=== PATIENT | female | born 1955 | race Caucasian/White ===

== ENCOUNTER 2017-06-25 18:15 | Inpatient (IN) ==
[2017-06-25] MEDS ORDERED: Ipratropium/Albuterol Neb 3 ML IH ONE (19:12)
--- NOTE | 2017-06-25 19:36 | Emergency Department Note ---
Disposition Clinical Impression: Shortness of breath, Pleural effusion, malignant, Lung cancer Disposition: Admitted As Inpatient Condition: Serious [facility] Provider[facility] - Forms: ED Satisfaction Letter Time of Disposition: 21:19 SOB HPI - General Chief Complaint: ED Shortness of Breath/Dyspnea Stated Complaint: YELENA Time Seen by Provider: 06/25/17 18:33 Source: patient Mode of arrival: ambulatory Limitations: physical limitation Nursing Notes Reviewed: Yes Vital Signs Reviewed: Yes - History of Present Illness 61-year-old female presents menstrual for shortness of breath. Patient is currently being worked up for possible lung cancer as she has had an abnormal PET scan and abnormal CT scan of the chest back in April. She does had a recent PET scan done that was showed active neoplasia. She states she is getting more short of breath. She states she feels short of breath at rest but definitely worse with up walking around and movement. She denies any chest pain. She states her legs are fine. She denies any sputum production but does admit to increasing cough as well. No documented fevers. No other complaints at this time. She scheduled to see oncology this upcoming week. - Related Data Allergies Allergy/AdvReac Type Severity Reaction Status Date / Time No Known Allergies Allergy Verified 01/25/17 08:22 All systems ED: reviewed and negative except as stated. Constitutional: Reports: as per HPI. Denies: fever, chills Eyes: Reports: as per HPI ENT ED: Reports: as per HPI Cardiovascular: Reports: as per HPI. Denies: chest pain, palpitations Respiratory: Reports: cough, dyspnea. 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 Absent: accessory muscle use - Cardiovascular Cardiovascular exam: Present: normal rhythm, tachycardia - Abdominal Exam Abdominal exam: Present: soft, Non-Tender, normal bowel sounds - Extremities Exam Extremities exam: Present: normal inspection - Back Exam Back exam: Present: normal inspection - Neurological Exam Neurological exam: Present: alert, oriented X3 - Psychiatric Psychiatric exam: Present: normal affect, normal mood - Skin Skin exam: Present: warm, dry, intact Course Vital Signs Temperature 97.9 F 06/25/17 18:23 Pulse Rate 118 06/25/17 18:23 Respiratory Rate 20 06/25/17 18:23 Blood Pressure 127/107 06/25/17 18:23 O2 Sat by Pulse Oximetry 96 06/25/17 18:23 Temperature 97.9 F 06/25/17 18:23 Pulse Rate 119 06/25/17 20:30 Respiratory Rate 24 06/25/17 20:30 Blood Pressure 118/95 06/25/17 20:30 O2 Sat by Pulse Oximetry 91 06/25/17 20:30 Oxygen Delivery Oxygen Delivery Nasal Cannula Shortness of Breath/Dyspnea - [facility] Narrative Medical decision making narrative: Patient's lung cancer seems to have drastically worsened to the point that she has got bilateral effusions now it is likely malignant. I have ordered some IV Lasix to see if this will help at all. She was started on IV antibiotics as well. Patient will need to be admitted to a stepdown bed. Await the official report from radiology. - Medical Records Medical records reviewed: Yes I reviewed the patient's medical records. - Lab Data Lab results reviewed: Yes I reviewed the patient's lab results. Result diagrams: 06/25/17 19:38 06/25/17 19:38 Lab Results 06/25/17 06/25/17 06/25/17 Range/Units 19:38 19:38 19:38 WBC 12.1 H (4.3-11.1) K/mcL RBC 4.91 (3.82-4.97) M/mcL Hgb 15.2 (11.5-15.4) g/dL Hct 45.7 H (35.3-44.9) % MCV 93.1 (83.0-100.0) fL MCH 31.0 (28.0-33.3) pg MCHC 33.3 (31.6-35.5) g/dL RDW 15.0 H (11.5-14.5) % Plt Count 319 (140-400) K/mcL MPV 10.3 (9.4-12.4) fL Immature Gran % 0.7 (0-4) % Seg Neutrophils % 77.6 % Lymphocytes % 12.2 % Monocytes % 8.2 % Eosinophils % 0.8 % Basophils % 0.5 % Neutrophils # 9.4 H (1.6-8.9) K/mcL Lymphocytes # 1.5 (0.6-4.6) K/mcL Monocytes # 1.0 (0.0-1.3) K/mcL Eosinophils # 0.1 (0.0-0.6) K/mcL Basophils # 0.1 (0.0-0.2) K/mcL Sodium 135 L (136-145) mEq/L Potassium 3.3 L (3.5-5.1) mEq/L Chloride 103 (98-107) mEq/L Carbon Dioxide 24 (23-29) mEq/L BUN 11 (8-23) mg/dL Creatinine 0.66 (0.60-1.20) mg/dL Est GFR ( Amer) > 60 (> 60) Est GFR (Non-Af Amer) > 60 (> 60) BUN/Creatinine Ratio 17 (6-26) Glucose 126 H (70-105) mg/dL Calculated Osmolality 281 (280-300) Calcium 9.0 (8.6-10.3) mg/dL B-Natriuretic Peptide 43 (Less than 100) pg/mL - Radiology Data Radiology results reviewed: Yes I reviewed the patient's radiology results. - EKG Data EKG attestation: Yes I reviewed and interpreted this EKG. EKG results narrative: EKG shows a rate of 119 consistent with sinus tachycardia. Normal axis. AR interval 131. QRS 69. QTC 394.
[2017-06-25] MEDS ORDERED: methylPREDNISolone 125 MG/2 ML VIAL IVP ONE (20:08)
[2017-06-25] MEDS ORDERED: Piperacillin/Tazobactam 3.375 GM in 0.9 % Sodium Chloride Mini Bag 100 ML IVPB ONE (20:08)
[2017-06-25 20:27] LABS: Basophils # 0.1 K/mcL (0.0-0.2); Basophils % 0.5 %; Eosinophils # 0.1 K/mcL (0.0-0.6); Eosinophils % 0.8 %; Hematocrit 45.7 % (35.3-44.9); Hemoglobin 15.2 g/dL (11.5-15.4); Immature Granulocytes % 0.7 % (0-4); Lymphocytes # 1.5 K/mcL (0.6-4.6); Lymphocytes % 12.2 %; Mean Corpuscular HGB Conc 33.3 g/dL (31.6-35.5); Mean Corpuscular Volume 93.1 fL (83.0-100.0); Mean Platelet Volume 10.3 fL (9.4-12.4); Monocytes % 8.2 %; Neutrophils # 9.4 K/mcL (1.6-8.9); Platelet Count 319 K/mcL (140-400); Red Blood Count 4.91 M/mcL (3.82-4.97); Segmented Neutrophils % 77.6 %
[2017-06-25] MEDS ORDERED: *HR* FentaNYL (PF) 100 MCG/2 ML VIAL IVP ONE (20:30)
[2017-06-25 20:35] LABS: BUN/Creatinine Ratio 17 (6-26); Blood Urea Nitrogen 11 mg/dL (8-23); Carbon Dioxide 24 mEq/L (23-29); Chloride 103 mEq/L (98-107); Glucose 126 mg/dL (70-105); Osmolality,Calculated 281 (280-300); Potassium 3.3 mEq/L (3.5-5.1); Sodium 135 mEq/L (136-145); eGFR For African Americans > 60 (> 60); eGFR For Non-African Americans > 60 (> 60)
[2017-06-25] MEDS ORDERED: Furosemide 40 MG/4 ML VIAL IVP ONE (21:14)
[2017-06-25 21:28] LABS: Troponin I < 0.03 ng/mL (< 0.04)
[2017-06-25] MEDS ORDERED: Naloxone 0.4 MG/ML INJ IVP PRN (21:40)
[2017-06-25] MEDS ORDERED: Acetaminophen 325 MG TABLET PO PRN (21:40)
[2017-06-25] MEDS ORDERED: Ipratropium/Albuterol Neb 3 ML IH PRN (21:45)
--- NOTE | 2017-06-25 21:53 | Internal Med History&Physical ---
Date of Encounter: 06/25/17 Time of Encounter: 21:00 Assessment and Plan (1) DVT prophylaxis Current visit: Yes Status: Acute Heparin subcutaneously (2) Breast cancer Current visit: Yes Status: Acute S/P mastectomy in 2010. We will consult oncology Qualifiers: Breast location: unspecified site of breast Estrogen receptor status: unspecified Patient sex: female Laterality: right Qualified Code(s): C50.911 - Malignant neoplasm of unspecified site of right female breast (3) Lung cancer Current visit: Yes Status: Acute CT and PET scan suspected lung cancer. Patient is scheduled to see oncology. We will continue closely monitor patient and give supportive treatment. Consult oncology. Qualifiers: Laterality: right Lung location: lower lobe of lung Qualified Code(s): C34.31 - Malignant neoplasm of lower lobe, right bronchus or lung (4) Pleural effusion, malignant Current visit: Yes Status: Acute Most likely malignant pleural effusion. Patient has negative BNP, negative for leg swelling, CHF is less likely. - We will give low-rate IV fluid as patient had contrasted CT today (5) Shortness of breath Current visit: Yes Status: Acute Most likely due to lung cancer and large amount of pleural effusion. Progressive course over the last 6 months. Patient has lost 50 pounds in last 6 months. CTA shows no PE. - As patient has leukocytosis and tachycardia, empirical antibiotics is started from ER, will continue. - Patient has respiratory distress, will place her on BiPAP during tonight. - Continue closely monitor patient Internal Medicine - H&P: HPI Chief complaint: SOB Admitted From: Home Plans for Post Hospital Care: Home History of present illness: Ms. Gilmore is a 61 year old female with history of breast cancer S/P mastectomy, suspect lung malignancy by PET scan recently, presented to ER for progressive shortness of breath and cough. Patient said she has shortness of breath since 6 months ago, with nonproductive cough, progressively getting worse, with exertional intolerance. Patient denies fever, chest pain, nausea. Patient denies leg swelling. Patient cannot lay flat for sleeping at home. Patient has a recent PET scan suspect lung neoplasm and is scheduled to see oncology next week. In emergency room, CAT scan shows large amount of bilateral pleural effusion and pulmonary nodules. Patient was admitted for further management. Past Med Surg Social Fam HX - Past Medical History Medical history: arthritis, cancer Psychiatric history: no psych history - Past Surgical History Surgical History: breast surgery, cancer surgery, cholecystectomy, other - Social History Smoking Status: Former smoker Smokeless Tobacco Status: No Alcohol use: none Drug use: none - Family History Mother History Unknown: Yes Internal Medicine - H&P: Meds 3 Allergy/AdvReac Type Severity Reaction Status Date / Time No Known Allergies Allergy Verified 01/25/17 08:22 All Systems PM: A 10-system review of systems was performed and is negative for pertinent findings except as documented above in the HPI. - Constitutional Vitals: Temp Pulse Resp BP Pulse Ox 97.9 F 119 24 118/95 91 06/25/17 18:23 06/25/17 20:30 06/25/17 20:30 06/25/17 20:30 06/25/17 20:30 General appearance: Present: mild distress, A&O X 3, answers questions appropriately - Head Head exam: Present: atraumatic, normocephalic - Eye Eye exam: Present: PERRL, conjuntiva pink, sclera anicteric Pupils: Present: PERRL - Neck Neck exam general surgery: Present: supple, trachea midline. Absent: lymphadenopathy - Respiratory Respiratory exam: Present: CTAB, rhonchi (Defused rhonchi bilaterally), wheezes (Scattered wheezes bilaterally). Absent: accessory muscle use, rales - Cardiovascular Cardiovascular exam: Present: RRR, +S1, +S2, tachycardia. Absent: diastolic murmur, gallop, rubs, systolic murmur - GI/Abdominal GI/Abdominal exam: Present: normal bowel sounds, soft, no peritoneal signs. Absent: distended, tenderness - Extremities Exam Extremities exam: Present: warm, radial pulses palpable and symmetrical. Absent : calf tenderness, cyanotic, pedal edema - Neurological Exam Neurological exam: Present: CN II-XII intact, oriented X3, no focal deficits. Absent: pronater drift, facial droop, speech deficit - Skin Skin exam: Present: dry, intact Internal Med - H&P Results - Labs CBC & Chem 7: 06/25/17 19:38 06/25/17 19:38 - EKG Data -: EKG Interpreted by Myself EKG shows normal: sinus rhythm Rate: tachycardia
[2017-06-25] MEDS ORDERED: 0.9 % Sodium Chloride 1,000 ML IVC SCH (22:00)
[2017-06-25] MEDS ORDERED: *HR* LORazepam 1 MG TABLET PO PRN (22:21)
[2017-06-25] MEDS: Ipratropium/Albuterol Neb 3 ML IH SCH (22:30)
[2017-06-25] MEDS: *HR* HYDROcodone/Acet 5/325 mg TABLET PO PRN (22:47)
[2017-06-25] MEDS ORDERED: Piperacillin/Tazobactam 3.375 GM in 0.9 % Sodium Chloride Mini Bag 100 ML IVPB SCH (23:00)
[2017-06-26] MEDS ORDERED: Piperacillin/Tazobactam 3.375 GM in 0.9 % Sodium Chloride Mini Bag 100 ML IVPB SCH
[2017-06-26] MEDS: Ipratropium/Albuterol Neb 3 ML IH SCH ×4 (03:20→21:51)
[2017-06-26 05:48] LABS: Basophils % 0.2 %; Hematocrit 46.1 % (35.3-44.9); Hemoglobin 15.5 g/dL (11.5-15.4); Immature Granulocytes % 1.3 % (0-4); Immature Platelets 6.1 % (1.1-6.1); Lymphocytes # 0.4 K/mcL (0.6-4.6); Lymphocytes % 4.6 %; Mean Corpuscular HGB Conc 33.6 g/dL (31.6-35.5); Mean Corpuscular Hemoglobin 31.6 pg (28.0-33.3); Mean Corpuscular Volume 93.9 fL (83.0-100.0); Mean Platelet Volume 10.5 fL (9.4-12.4); Monocytes # 0.1 K/mcL (0.0-1.3); Monocytes % 0.8 %; Neutrophils # 8.4 K/mcL (1.6-8.9); Nucleated Red Blood Cells 0.2 /100 WBC (0); Platelet Count 335 K/mcL (140-400); Red Blood Count 4.91 M/mcL (3.82-4.97); Segmented Neutrophils % 93.1 %
[2017-06-26 05:49] LABS: INR 1.1; Prothrombin Time 11.6 Seconds (9.4-12.1)
[2017-06-26 06:04] LABS: BUN/Creatinine Ratio 14 (6-26); Blood Urea Nitrogen 12 mg/dL (8-23); Calcium 9.1 mg/dL (8.6-10.3); Carbon Dioxide 24 mEq/L (23-29); Chloride 100 mEq/L (98-107); Glucose 175 mg/dL (70-105); Magnesium 1.8 mg/dL (1.6-2.6); Osmolality,Calculated 288 (280-300); Potassium 3.7 mEq/L (3.5-5.1); Sodium 137 mEq/L (136-145); eGFR For African Americans > 60 (> 60); eGFR For Non-African Americans > 60 (> 60)
[2017-06-26] MEDS: *HR* Heparin 5,000 UNIT/ML VIAL SQ SCH ×2 (06:36→18:25)
[2017-06-26] MEDS: Piperacillin/Tazobactam 3.375 GM in 0.9 % Sodium Chloride Mini Bag 100 ML IVPB SCH ×3 (06:37→22:20)
--- NOTE | 2017-06-26 22:04 | Internal Med Progress Note ---
Date of Encounter: 06/26/17 Time of Encounter: 10:04 - Assessment and plan (1) Shortness of breath Current Visit: Yes Status: Acute Assessment and plan: Due to pleural effusion and fluid overload. Possibly heart failure component. - does not currently meet clinical diagnosis. BNP is within normal limits. CTA negative for PE Today is tachycardic with leukocytosis, afebrile. Concern for pneumonia or sepsis - on Vancomycin and Zosyn She feels relief from Duo Nebs but she is tachycardic so I will switch to Xopenex. No wheezing appreciated on my exam. - Obtain echocardiogram - Continue diuresis - Continue Vancomycin and Zosyn. - Consult IR for thoracentesis (2) Breast cancer Current Visit: Yes Status: Acute Assessment and plan: Status-post mastectomy - with new found lung cancer Consult Oncology Qualifiers: Breast location: unspecified site of breast Estrogen receptor status: unspecified Patient sex: female Laterality: right Qualified Code(s): C50.911 - Malignant neoplasm of unspecified site of right female breast (3) DVT prophylaxis Current Visit: Yes Status: Acute (4) Lung cancer Current Visit: Yes Status: Acute Qualifiers: Laterality: right Lung location: lower lobe of lung Qualified Code(s): C34.31 - Malignant neoplasm of lower lobe, right bronchus or lung (5) Pleural effusion, malignant Current Visit: Yes Status: Acute Assessment and plan: See plan above. - Subjective Interval history: Patient SOB somewhat improved but nursing notes she was still requiring O2 - Constitutional Vitals: Temp Pulse Resp BP Pulse Ox 98.3 F 114 16 123/90 97 06/26/17 19:00 06/26/17 19:00 06/26/17 21:51 06/26/17 21:51 06/26/17 21:51 General appearance: Present: mild distress, A&O X 3, answers questions appropriately - Head Head exam: Present: atraumatic, normocephalic - Eye Eye exam: Present: PERRL, conjuntiva pink, sclera anicteric Pupils: Present: PERRL - Neck Neck exam general surgery: Present: supple, trachea midline. Absent: lymphadenopathy - Respiratory Respiratory exam: Present: decreased breath sounds, rales, rhonchi. Absent: accessory muscle use, wheezes - Cardiovascular Cardiovascular exam: Present: RRR, +S1, +S2. Absent: diastolic murmur, gallop, rubs, systolic murmur - GI/Abdominal GI/Abdominal exam: Present: normal bowel sounds, soft, no peritoneal signs. Absent: distended, tenderness - Extremities Exam Extremities exam: Present: warm, radial pulses palpable and symmetrical. Absent : calf tenderness, cyanotic, pedal edema - Neurological Exam Neurological exam: Present: CN II-XII intact, oriented X3, no focal deficits. Absent: pronater drift, facial droop, speech deficit - Skin Skin exam: Present: dry, intact Internal Medicine: Result - Labs CBC & Chem 7: 06/28/17 03:20 06/28/17 03:20 Labs: Short CBC 06/26/17 Range/Units 05:00 WBC 9.0 (4.3-11.1) K/mcL Hgb 15.5 H (11.5-15.4) g/dL Hct 46.1 H (35.3-44.9) % Plt Count 335 (140-400) K/mcL Neutrophils # 8.4 (1.6-8.9) K/mcL BMP 06/26/17 05:00 Sodium 137 Potassium 3.7 Chloride 100 Carbon Dioxide 24 BUN 12 Creatinine 0.85 Glucose 175 H Calcium 9.1 - ABG Interpretation ABG results: PT/INR, D-dimer PT 11.6 Seconds (9.4-12.1) 06/26/17 05:00 Consult Discharge Plan - Plan [facility]errals: [facility] [Primary Care Provider[facility] -
[2017-06-26] MEDS: Furosemide 40 MG/4 ML VIAL IVP SCH (22:20)
[2017-06-26] MEDS: *HR* HYDROcodone/Acet 5/325 mg TABLET PO PRN (22:21)
[2017-06-27] MEDS: Ipratropium/Albuterol Neb 3 ML IH SCH (03:28)
[2017-06-27] MEDS: *HR* Heparin 5,000 UNIT/ML VIAL SQ SCH ×2 (05:25→16:41)
[2017-06-27] MEDS: Piperacillin/Tazobactam 3.375 GM in 0.9 % Sodium Chloride Mini Bag 100 ML IVPB SCH (05:26)
[2017-06-27 07:44] LABS: BUN/Creatinine Ratio 11 (6-26); Blood Urea Nitrogen 11 mg/dL (8-23); Carbon Dioxide 23 mEq/L (23-29); Chloride 103 mEq/L (98-107); Glucose 121 mg/dL (70-105); Osmolality,Calculated 291 (280-300); Potassium 3.6 mEq/L (3.5-5.1); Sodium 140 mEq/L (136-145); eGFR For African Americans > 60 (> 60); eGFR For Non-African Americans 58 (> 60)
[2017-06-27] MEDS ORDERED: Aminoglycoside Consult 1 EACH MC ONE (08:11)
[2017-06-27 08:41] LABS: Basophils % 0.2 %; Hematocrit 46.4 % (35.3-44.9); Hemoglobin 15.5 g/dL (11.5-15.4); Immature Granulocytes % 0.4 % (0-4); Lymphocytes # 1.4 K/mcL (0.6-4.6); Lymphocytes % 6.6 %; Mean Corpuscular HGB Conc 33.4 g/dL (31.6-35.5); Mean Corpuscular Hemoglobin 31.2 pg (28.0-33.3); Mean Corpuscular Volume 93.4 fL (83.0-100.0); Mean Platelet Volume 11.1 fL (9.4-12.4); Monocytes % 7.4 %; Neutrophils # 17.8 K/mcL (1.6-8.9); Platelet Count 304 K/mcL (140-400); Red Blood Count 4.97 M/mcL (3.82-4.97); Red Cell Distribution Width 15.9 % (11.5-14.5); Segmented Neutrophils % 85.4 %
[2017-06-27 08:46] LABS: Monocytes # 1.5 K/mcL (0.0-1.3)
--- NOTE | 2017-06-27 08:48 | Internal Med Progress Note ---
Date of Encounter: 06/27/17 Time of Encounter: 08:46 - Assessment and plan (1) Shortness of breath Current Visit: Yes Status: Acute Assessment and plan: Due to pleural effusion and fluid overload. Possibly heart failure component. - does not currently meet clinical diagnosis. BNP is within normal limits. CTA negative for PE Today is tachycardic with leukocytosis, afebrile. Concern for pneumonia or sepsis - on Vancomycin and Zosyn She feels relief from Duo Nebs but she is tachycardic so I will switch to Xopenex. No wheezing appreciated on my exam. - Obtain echocardiogram - Continue diuresis - Continue Vancomycin and Zosyn. - Consult IR for thoracentesis (2) Pleural effusion, malignant Current Visit: Yes Status: Acute Assessment and plan: See plan above. (3) Breast cancer Current Visit: Yes Status: Acute Assessment and plan: Status-post mastectomy - with new found lung cancer Consult Oncology Qualifiers: Breast location: unspecified site of breast Estrogen receptor status: unspecified Patient sex: female Laterality: right Qualified Code(s): C50.911 - Malignant neoplasm of unspecified site of right female breast (4) Lung cancer Current Visit: Yes Status: Acute Qualifiers: Laterality: right Lung location: lower lobe of lung Qualified Code(s): C34.31 - Malignant neoplasm of lower lobe, right bronchus or lung (5) DVT prophylaxis Current Visit: Yes Status: Acute - Subjective Interval history: Patient had difficulty sleeping overnight because of dyspnea. She denies chest pain, fevers/chills, n/v. - Constitutional Vitals: Temp Pulse Resp BP Pulse Ox 97.7 F 117 16 124/95 96 06/27/17 06:30 06/27/17 06:30 06/27/17 06:30 06/27/17 06:30 06/27/17 06:30 General appearance: Present: mild distress, A&O X 3, answers questions appropriately - Head Head exam: Present: atraumatic, normocephalic - Eye Eye exam: Present: PERRL, conjuntiva pink, sclera anicteric Pupils: Present: PERRL - Neck Neck exam general surgery: Present: supple, trachea midline. Absent: lymphadenopathy - Respiratory Respiratory exam: Present: CTAB. Absent: accessory muscle use, rales, rhonchi, wheezes Additional comments: No longer with rales - Cardiovascular Cardiovascular exam: Present: RRR, +S1, +S2. Absent: diastolic murmur, gallop, rubs, systolic murmur - GI/Abdominal GI/Abdominal exam: Present: normal bowel sounds, soft, no peritoneal signs. Absent: distended, tenderness - Extremities Exam Extremities exam: Present: warm, radial pulses palpable and symmetrical. Absent : calf tenderness, cyanotic, pedal edema - Neurological Exam Neurological exam: Present: CN II-XII intact, oriented X3, no focal deficits. Absent: pronater drift, facial droop, speech deficit - Skin Skin exam: Present: dry, intact Internal Medicine: Result - Labs CBC & Chem 7: 06/27/17 05:53 06/27/17 05:53 Labs: BMP 06/27/17 05:53 Sodium 140 Potassium 3.6 Chloride 103 Carbon Dioxide 23 BUN 11 Creatinine 0.97 Glucose 121 H Calcium 9.0 - ABG Interpretation ABG results: PT/INR, D-dimer PT 11.6 Seconds (9.4-12.1) 06/26/17 05:00 Consult Discharge Plan - Plan [facility]errals: [facility] [Primary Care Provider] -
[2017-06-27] MEDS: Furosemide 40 MG/4 ML VIAL IVP SCH ×2 (09:20→21:05)
[2017-06-27] MEDS: Levalbuterol Neb 1.25 MG/3 ML IH SCH ×3 (10:53→21:48)
[2017-06-27] MEDS: *HR* HYDROcodone/Acet 5/325 mg TABLET PO PRN ×3 (11:00→21:20)
--- NOTE | 2017-06-27 11:08 | IR Procedure Note ---
Date of procedure: 06/27/17 Consent Obtained: Verbal consent, Written consent Timeout: Correct patient and procedure verified, Correct site verified, Time out performed, Skin prep completed Local anesthetic: Lidocaine 1% Indications: effusion Procedure Performed: right thoracentesis Was there an home based assistant present: Yes Brake Repairer: Gagan Luz Site/Technique: right Results/Findings: 1.5 L serous fluid aspirated Estimated blood loss (cc): 1 Complications: None; Tolerated procedure well Post Procedure Treatment Plan: CXR Specimen: pleural fluid
[2017-06-27 11:11] LABS: Albumin 3.6 g/dL (3.5-5.7); Albumin/Globulin Ratio 1.5 (1.1-2.2); Globulin 2.4 g/dL (2.4-3.5); Lactate Dehydrogenase 308 Units/L (140-271)
[2017-06-27] MEDS ORDERED: *HR* LORazepam 1 MG TABLET PO PRN (15:04)
--- NOTE | 2017-06-27 17:35 | Oncology Inp Consult Note ---
<Selena Kunz - Last Filed: 06/28/17 09:11> Date of Encounter: 06/27/17 Time of Encounter: 17:34 Assessment and Plan (1) Breast cancer Status: Acute Assessment and plan: Oncologic history as detailed in HPI. Recent radiographic findings concerning for malignant process, either recurrent breast cancer or new primary. Dr. Lugo discussed radiographic findings concerning for malignancy with patient and patients family at today's visit. Awaiting cytology from pleural fluid, if negative or insufficient malignant cells obtained, will likely pursue other biopsy. May discontinue antibiotic therapy, CT findings and leukocytosis suggestive of malignancy and not infectious process. She is planned for left thoracentesis tomorrow, will also plan to send for cytology. She was planned for consult tomorrow as outpatient with Dr. Oscar following her PET/CT scan results, will arrange for close follow up with Dr. Oscar for further workup and management. Now requiring 2L O2, obtain SW consult for home O2 needs if she qualifies. Please refer to Dr. Lugo's attestation below for further details. Qualifiers: Breast location: unspecified site of breast Estrogen receptor status: unspecified Patient sex: female Laterality: right Qualified Code(s): C50.911 - Malignant neoplasm of unspecified site of right female breast - Data of Consult Patient: new to practice Consult date: 06/27/17 Requesting Physician: Gabriel Beckman MD Primary Care Provider: PCP NM - Consult Narrative Reason for consult: history of right breast cancer, imaging findings concerning for recurrence History of present illness: Ms. Gilmore is a 61 year old female with oncologic history significant for breast cancer diagnosed in 2010, treated with right mastectomy, chemo/rad and endocrine therapy with Arimidex for 5 years. She was last treated by Dr. Varela. Patient states she has been experiencing persistent, dry cough for about one year now. [facility] the past year and receiving workup and treatment for COPD exacerbation, pnuemonia and pleural effusion management. She is up to date on mammogram with most recent mammo/breast MRI in October/November of 2016 which had shown no evidence of malignancy and mild anterior right lung postradiation fibrosis. She underwent Bronchoscopy in January 2017 for right middle lobe pneumonia which found a benign appearing lesion cause a narrowing of the right middle lobe, brushings/ BAL were benign. Following CT findings on 05/09/2017 concerning for new sclerotic lesions within the lower thoracic spine, she underwent PET/CT which revealed mild uptake associated with an unchanged 0.9 cm x 0.6 cm solid nodule in the right lower lobe, persistent interlobular septal thickening, mosaic attenuation, and peribronchovascular groundglass and consolidative opacities bilaterally with associated uptake along with sclerotic metastases in a few thoracic and lumbar vertebrae and possibly the bilateral 10th ribs and mildly hypermetabolic mediastinal and bilateral hilar lymph nodes, potentially reactive or metastatic. Following this she was referred to Dr. Oscar for further workup and management, however recently admitted for worsening SOB, cough and exertional intolerance. CTA revealed multifocal areas of peripheral ground-glass nodular opacification identified, as described on previous evaluations and bilateral, large pleural effusions, right greater than left. IR performed right thoracentesis with 1.5 L serous fluid aspirated, fluid sent for cytology. Ms. Dali Gilmore is a prior smoker, she quite smoking about 14 years ago. She has been experiencing new respiratory symptoms as described above which have been worsening over the past year. Over the past 6-12 months she has lost 50 pounds and has no appetite. Most recently she has been unable to ambulate in her home due to exertional dyspnea. Past Med Surg Social Fam HX - Past Medical History Medical history: arthritis, cancer Psychiatric history: no psych history - Past Surgical History Surgical History: breast surgery, cancer surgery, cholecystectomy, other - Social History Smoking Status: Former smoker Smokeless Tobacco Status: No Alcohol use: none Drug use: none - Family History Mother History Unknown: Yes Medications and Allergies BuPROPion XL (24 HR) [Wellbutrin XL] 150 mg PO DAILY 06/25/17 [History] DULoxetine [Cymbalta] 30 mg PO DAILY 06/25/17 [History] Pregabalin [Lyrica] 200 mg PO TID 06/25/17 [History] Budesonide/Formoterol 160/4.5 [Symbicort 160/4.5] 1 puff IH BID 06/26/17 [ History] Cholecalciferol (Vitamin D3) [Vitamin D3] 2,000 unit PO DAILY 06/26/17 [History] Losartan Potassium [Cozaar] 50 mg PO DAILY 06/26/17 [History] Tramadol HCl [Ultram] 50 mg PO QID PRN 06/26/17 [History] 3 Allergy/AdvReac Type Severity Reaction Status Date / Time No Known Allergies Allergy Verified 01/25/17 08:22 Constitutional: Present: as per HPI, anorexia, fatigue, weight loss. Absent: chills, fever(s) Eyes: Absent: change in vision Nose, mouth and throat: Absent: headache(s) Cardiovascular: Absent: chest pain, irregular heart rhythm, palpitations Respiratory: Present: as per HPI, cough, dyspnea. Absent: hemoptysis Gastrointestinal: Absent: abdominal pain, dysphagia, hematemesis, hematochezia, nausea, vomiting Genitourinary: Absent: dysuria, hematuria Musculoskeletal: Present: muscle weakness Integumentary: Absent: wounds Neurological: Absent: focal weakness, frequent falls, numbness, tingling Psychiatric: Present: change in appetite Hematologic/Lymphatic: Present: as per HPI Oncology - Exam - Constitutional Vitals: Temp Pulse Resp BP Pulse Ox 97.9 F 118 16 109/83 96 06/27/17 15:58 06/27/17 15:58 06/27/17 15:58 06/27/17 15:58 06/27/17 15:58 General appearance: cooperative, no acute distress, no febrile - Head Head exam: Present: atraumatic - Respiratory Respiratory exam: Present: decreased breath sounds, CTAB. Absent: respiratory distress - Cardiovascular Cardiovascular exam: Present: RRR, +S1, +S2 - GI/Abdominal GI/Abdominal exam: Present: normal bowel sounds, soft. Absent: tenderness - Extremities Exam Extremities exam: Present: normal inspection. Absent: calf tenderness - Neurological Exam Neurological exam: Present: alert, oriented X3, no focal deficits, strengths equal and symetr throughout - Psychiatric Psychiatric exam: Present: normal affect, normal mood - Skin Skin exam: Present: normal color, warm Additional comments: flushed appearance Oncology - Results Labs: Short CBC 06/27/17 Range/Units 05:53 WBC 20.8 H D (4.3-11.1) K/mcL Hgb 15.5 H (11.5-15.4) g/dL Hct 46.4 H (35.3-44.9) % Plt Count 304 (140-400) K/mcL Neutrophils # 17.8 H (1.6-8.9) K/mcL BMP 06/27/17 05:53 Sodium 140 Potassium 3.6 Chloride 103 Carbon Dioxide 23 BUN 11 Creatinine 0.97 Glucose 121 H Calcium 9.0 Liver Function 06/27/17 Range/Units 05:53 Albumin 3.6 (3.5-5.7) g/dL Consult Discharge Plan - Plan [facility]errals: [facility] [Primary Care Provider[facility] - <Hector Lugo - Last Filed: 06/29/17 08:21> Date of Encounter: 06/27/17 - Data of Consult Requesting Physician: Gabirel Beckman MD Primary Care Provider: PCP NM - Consult Narrative History of present illness: Ms. Gilmore is a 61 year old female Oncology - Exam - Constitutional Vitals: Temp Pulse Resp BP Pulse Ox 98.2 F 106 16 110/90 94 06/29/17 06:25 06/29/17 06:25 06/29/17 06:25 06/29/17 06:25 06/29/17 06:25 Oncology - Results Labs: Short CBC 06/29/17 Range/Units 02:42 WBC 12.2 H (4.3-11.1) K/mcL Hgb 14.5 (11.5-15.4) g/dL Hct 44.4 (35.3-44.9) % Plt Count 261 (140-400) K/mcL Neutrophils # 9.4 H (1.6-8.9) K/mcL [facility] 06/29/17 02:42 Sodium 135 L Potassium 3.4 L Chloride 97 L Carbon Dioxide 30 H BUN 15 Creatinine 0.84 Glucose 127 H Calcium 8.9 - Attending Attestation seen and examined patient and agree with assessment and plan. New pleural effusions and findings on chest CT suggest lymphangitic spread of a neoplasm. Agree with bilateral thoracenteses. Will await cytology. My primary suspicion is recurrent breast cancer. However, other neoplastic processes are possible also. If cytology from both taps ends up negative may need VATS.
[2017-06-28] MEDS: Levalbuterol Neb 1.25 MG/3 ML IH SCH ×4 (04:19→22:03)
[2017-06-28 04:26] LABS: BUN/Creatinine Ratio 13 (6-26); Blood Urea Nitrogen 11 mg/dL (8-23); Calcium 8.7 mg/dL (8.6-10.3); Carbon Dioxide 30 mEq/L (23-29); Chloride 99 mEq/L (98-107); Glucose 106 mg/dL (70-105); Osmolality,Calculated 286 (280-300); Potassium 2.9 mEq/L (3.5-5.1); Sodium 138 mEq/L (136-145); eGFR For African Americans > 60 (> 60); eGFR For Non-African Americans > 60 (> 60)
[2017-06-28 04:42] LABS: Basophils # 0.1 K/mcL (0.0-0.2); Basophils % 0.4 %; Eosinophils # 0.1 K/mcL (0.0-0.6); Eosinophils % 0.4 %; Hematocrit 44.6 % (35.3-44.9); Hemoglobin 14.5 g/dL (11.5-15.4); Immature Granulocytes % 0.4 % (0-4); Lymphocytes # 1.7 K/mcL (0.6-4.6); Lymphocytes % 12.3 %; Mean Corpuscular HGB Conc 32.5 g/dL (31.6-35.5); Mean Corpuscular Hemoglobin 30.8 pg (28.0-33.3); Mean Corpuscular Volume 94.7 fL (83.0-100.0); Mean Platelet Volume 10.7 fL (9.4-12.4); Monocytes # 1.2 K/mcL (0.0-1.3); Neutrophils # 10.6 K/mcL (1.6-8.9); Platelet Count 305 K/mcL (140-400); Red Blood Count 4.71 M/mcL (3.82-4.97); Red Cell Distribution Width 15.5 % (11.5-14.5); Segmented Neutrophils % 77.5 %
[2017-06-28] MEDS: *HR* Heparin 5,000 UNIT/ML VIAL SQ SCH ×2 (06:16→17:31)
[2017-06-28] MEDS ORDERED: Benzonatate 100 MG CAPSULE PO PRN (09:53)
[2017-06-28] MEDS: *HR* HYDROcodone/Acet 5/325 mg TABLET PO PRN ×3 (09:57→17:31)
[2017-06-28] MEDS: Furosemide 40 MG/4 ML VIAL IVP SCH (09:58)
[2017-06-28] MEDS ORDERED: Potassium Chloride Elixir 20 MEQ/15 ML UDC PO ONE (10:25)
--- NOTE | 2017-06-28 10:28 | Internal Med Progress Note ---
Date of Encounter: 06/28/17 Time of Encounter: 10:28 - Subjective Interval history: SOB improved S/p thoracentesis yesterday with ~1500 ml removed Cytology still pending WBC cound trending down Awaiting left-sided thoracentesis today Assessment and plan (1) Shortness of breath Due to pleural effusion and fluid overload. BNP is within normal limits and CHF not clinically suggested. CTA negative for PE Abx d/c's as PNA not likely Blood cx neg to date Continue diuresis IR consulted for left-sided Thoracentesis (2) Pleural effusion, malignant Cytology pending from thoracentesis (3) Breast cancer Current Visit: Yes Status: Acute Assessment and plan: Status-post mastectomy, RTX and chemo with recent breast MRI and mammo negative for recurrence Oncology consult appreciated (4) Lung cancer Depending on cytology results a bx may be needed Oncology following - - Constitutional Vitals: Temp Pulse Resp BP Pulse Ox 98.1 F 119 18 115/91 94 06/28/17 06:27 06/28/17 10:01 06/28/17 10:14 06/28/17 10:01 06/28/17 10:14 General appearance: Present: A&O X 3, pleasant, answers questions appropriately - Head Head exam: Present: atraumatic, normocephalic - Eye Eye exam: Present: EOMI, normal appearance, PERRL, conjuntiva pink, sclera anicteric Pupils: Present: PERRL - Neck Neck exam general surgery: Present: supple, trachea midline. Absent: lymphadenopathy - Respiratory Respiratory exam: Present: decreased breath sounds, CTAB. Absent: accessory muscle use, rales, rhonchi, wheezes - Cardiovascular Cardiovascular exam: Present: RRR, +S1, +S2. Absent: diastolic murmur, gallop, rubs, systolic murmur - GI/Abdominal GI/Abdominal exam: Present: normal bowel sounds, soft, no peritoneal signs. Absent: distended, guarding, tenderness - Extremities Exam Extremities exam: Present: warm, radial pulses palpable and symmetrical. Absent : calf tenderness, cyanotic, pedal edema - Neurological Exam Neurological exam: Present: CN II-XII intact, oriented X3, no focal deficits. Absent: pronater drift, facial droop, speech deficit - Psychiatric Psychiatric exam: Present: normal affect, normal mood - Skin Skin exam: Present: dry, intact Internal Medicine: Result - Labs CBC & Chem 7: 06/28/17 03:20 06/28/17 03:20 Labs: Short CBC 06/28/17 Range/Units 03:20 WBC 13.7 H (4.3-11.1) K/mcL Hgb 14.5 (11.5-15.4) g/dL Hct 44.6 (35.3-44.9) % Plt Count 305 (140-400) K/mcL Neutrophils # 10.6 H (1.6-8.9) K/mcL BMP 06/28/17 03:20 Sodium 138 Potassium 2.9 L Chloride 99 Carbon Dioxide 30 H BUN 11 Creatinine 0.86 Glucose 106 H Calcium 8.7 Liver Function 06/27/17 Range/Units 05:53 Albumin 3.6 (3.5-5.7) g/dL - ABG Interpretation ABG results: PT/INR, D-dimer PT 11.6 Seconds (9.4-12.1) 06/26/17 05:00 - Impressions Impressions Thoracentesis Ultrasound 06/27/17 00:00 IMPRESSION: Successful ultrasound guided thoracentesis. D/ / Roberto Jason MD / Roberto Jason MD Interpreting Provider: Roberto Jason MD Chest X-Ray 06/27/17 10:54 IMPRESSION: Bilateral pleural effusions appear roughly similar to the prior examination. No evidence for pneumothorax. Stable diffuse bilateral increased interstitial markings. D/ / 06/27/2017 11:15:24 Bryce Alfaro MD / erlin Interpreting Provider: Bryce Alfaro MD Consult Discharge Plan - Plan Referrals: [facility] [Primary Care Provider] -
[2017-06-28] MEDS: Ondansetron 4 MG/2 ML VIAL IVP PRN (11:14)
[2017-06-28 14:16] LABS: Glucose,Pleural Fluid 144 mg/dL (No Ref Range); Total Protein,Pleural Fluid < 3.0 g/dL (No Ref Range)
[2017-06-28 16:20] LABS: Appearance of Pleural Fl Clear (Clear)
[2017-06-28 16:25] LABS: RBC,Pleural Fluid < 0.002 M/mcL
[2017-06-28] MEDS ORDERED: Mag Hydrox/Al Hydrox/Simeth 30 ML UDC PO PRN (18:56)
--- NOTE | 2017-06-28 20:04 | Electrocardiograph Report ---
[place] [id number] Test Date: 2017-06-25 Pat Name: Dali Gilmore Department: 103 Room: [id number] Gender: F Rn Field Case Manager: MARIA ANTONIA : 1955 Requested By: Keyur Hughes Order Number: [id number] Reading MD: Micki Salmeron Measurements Intervals [place] Rate: 119 P: 26 OK: 131 QRS: 39 QRSD: 69 T: 38 QT: 324 QTc: 394 Interpretive Statements SINUS TACHYCARDIA LOW QRS VOLTAGE IN PRECORDIAL LEADS [QRS DEFLECTION < 1.0 mV IN CHEST LEADS] ABNORMAL RHYTHM ECG Electronically Signed On 06-28-2017 20:02:51 EST by Micki Salmeron
[2017-06-29 03:21] LABS: Basophils # 0.1 K/mcL (0.0-0.2); Basophils % 0.6 %; Eosinophils # 0.1 K/mcL (0.0-0.6); Eosinophils % 0.9 %; Hematocrit 44.4 % (35.3-44.9); Hemoglobin 14.5 g/dL (11.5-15.4); Immature Granulocytes % 0.6 % (0-4); Lymphocytes # 1.3 K/mcL (0.6-4.6); Lymphocytes % 10.6 %; Mean Corpuscular HGB Conc 32.7 g/dL (31.6-35.5); Mean Corpuscular Hemoglobin 30.9 pg (28.0-33.3); Mean Corpuscular Volume 94.5 fL (83.0-100.0); Mean Platelet Volume 10.7 fL (9.4-12.4); Monocytes # 1.2 K/mcL (0.0-1.3); Monocytes % 10.1 %; Neutrophils # 9.4 K/mcL (1.6-8.9); Platelet Count 261 K/mcL (140-400); Red Cell Distribution Width 15.2 % (11.5-14.5); Segmented Neutrophils % 77.2 %
[2017-06-29 03:38] LABS: BUN/Creatinine Ratio 18 (6-26); Blood Urea Nitrogen 15 mg/dL (8-23); Calcium 8.9 mg/dL (8.6-10.3); Carbon Dioxide 30 mEq/L (23-29); Chloride 97 mEq/L (98-107); Glucose 127 mg/dL (70-105); Osmolality,Calculated 282 (280-300); Potassium 3.4 mEq/L (3.5-5.1); Sodium 135 mEq/L (136-145); eGFR For African Americans > 60 (> 60); eGFR For Non-African Americans > 60 (> 60)
[2017-06-29] MEDS: Levalbuterol Neb 1.25 MG/3 ML IH SCH ×4 (04:05→22:06)
[2017-06-29] MEDS: *HR* Heparin 5,000 UNIT/ML VIAL SQ SCH ×2 (04:58→17:45)
[2017-06-29] MEDS: *HR* HYDROcodone/Acet 5/325 mg TABLET PO PRN ×3 (05:01→21:02)
[2017-06-29] MEDS ORDERED: traMADol 50 MG TABLET PO PRN (14:36)
--- NOTE | 2017-06-29 14:51 | Internal Med Progress Note ---
Date of Encounter: 06/30/17 Time of Encounter: 14:50 - Subjective Interval history: SOB improved S/p right thoracentesis S/p left thoracentesis Cytology still pending WBC cound trending down Decreased appetite Merrinol added Very weak Assessment and plan (1) Shortness of breath Due to pleural effusion and fluid overload. BNP is within normal limits and CHF not clinically suggested. CTA negative for PE Abx d/c's as PNA not likely Blood cx neg to date Continue diuresis Lt. thoracentesis yesterday Cytology/path report pending Oncology following (2) Pleural effusion, malignant Cytology pending from thoracentesis (3) Breast cancer Status-post mastectomy, RTX and chemo with recent breast MRI and mammo negative for recurrence Oncology consult appreciated (4) Lung cancer Depending on cytology results a bx may be needed Oncology following Disposition: Possible home tomorrow May need home O2 - - Constitutional Vitals: Temp Pulse Resp BP Pulse Ox 98.1 F 111 16 110/80 95 06/29/17 11:43 06/29/17 11:43 06/29/17 11:43 06/29/17 11:43 06/29/17 11:43 General appearance: Present: A&O X 3, pleasant, answers questions appropriately - Head Head exam: Present: atraumatic, normocephalic - Eye Eye exam: Present: PERRL, conjuntiva pink, sclera anicteric Pupils: Present: PERRL - Neck Neck exam general surgery: Present: supple, trachea midline. Absent: lymphadenopathy - Respiratory Respiratory exam: Present: CTAB. Absent: accessory muscle use, rales, rhonchi, wheezes - Cardiovascular Cardiovascular exam: Present: RRR, +S1, +S2. Absent: diastolic murmur, gallop, rubs, systolic murmur - GI/Abdominal GI/Abdominal exam: Present: normal bowel sounds, soft, no peritoneal signs. Absent: distended, tenderness - Extremities Exam Extremities exam: Present: warm, radial pulses palpable and symmetrical. Absent : calf tenderness, cyanotic, pedal edema - Neurological Exam Neurological exam: Present: CN II-XII intact, oriented X3, no focal deficits. Absent: pronater drift, facial droop, speech deficit - Skin Skin exam: Present: dry, intact Internal Medicine: Result - Labs CBC & Chem 7: 06/29/17 02:42 06/29/17 02:42 Labs: Short CBC 06/29/17 Range/Units 02:42 WBC 12.2 H (4.3-11.1) K/mcL Hgb 14.5 (11.5-15.4) g/dL Hct 44.4 (35.3-44.9) % Plt Count 261 (140-400) K/mcL Neutrophils # 9.4 H (1.6-8.9) K/mcL BMP 06/29/17 02:42 Sodium 135 L Potassium 3.4 L Chloride 97 L Carbon Dioxide 30 H BUN 15 Creatinine 0.84 Glucose 127 H Calcium 8.9 - ABG Interpretation ABG results: PT/INR, D-dimer PT 11.6 Seconds (9.4-12.1) 06/26/17 05:00 - Impressions Impressions Chest X-Ray 06/27/17 10:54 IMPRESSION: Bilateral pleural effusions appear roughly similar to the prior examination. No evidence for pneumothorax. Stable diffuse bilateral increased interstitial markings. D/ / 06/27/2017 11:15:24 Bryce Alfaro MD / erlin Interpreting Provider: Bryce Alfaro MD Thoracentesis Ultrasound 06/28/17 00:00 IMPRESSION: Successful ultrasound guided thoracentesis. D/ / Jimbo Noble MD / Jimbo Noble MD Interpreting Provider: Jimbo Noble MD Chest X-Ray 06/28/17 15:35 IMPRESSION: No evidence of pneumothorax status post left-sided thoracentesis. Persistent bilateral airspace disease with small right-sided pleural effusion which is slightly increased compared to prior. D/ / Chrissy Hernandez MD / Chrissy Hernandez MD Interpreting Provider: Chrissy Hernandez MD Consult Discharge Plan - Plan Referrals: [facility] [Primary Care Provider] -
--- NOTE | 2017-06-29 14:56 | Oncology Inp Progress Note ---
Date of Encounter: 06/29/17 Time of Encounter: 14:56 (1) Breast cancer Current Visit: Yes Status: Acute Assessment and plan: Recent radiographic findings concerning for malignant process, either recurrent breast cancer or new primary. Awaiting cytology from left and right pleural fluid, if negative or insufficient malignant cells obtained, will pursue biopsy. She is breathing more comfortably and verbalizes decreased feeling of SOB. She is ambulating to the bathroom unassisted but otherwise continues to feel quite weak and not engaging in much activity. I encouraged her to to continue to increase activity as tolerated. She continues to utilize 2L O2 per nasal cannula, she will need set up for home O2 if she cannot be weaned. CXR today with no evidence of pneumothorax however does note small right sided pleural effusion. She was given an appointment to follow up with Dr. Oscar on Tuesday. Pleural fluid cytology still pending, she is otherwise doing better and may discharge home soon. I encouraged her to call with any further questions or concerns. Qualifiers: Breast location: unspecified site of breast Estrogen receptor status: unspecified Patient sex: female Laterality: right Qualified Code(s): C50.911 - Malignant neoplasm of unspecified site of right female breast Oncology: Subj Interval history: Ms. Gilmore is sitting up in bed, sister and brother in law at bedside. She reports mild left posterior thoracic pain for which she has just taken a Anderson for. She is breathing more comfortably following her left/right thoracentesis. She denies any new or worsening symptoms. - Constitutional Vitals: Vital Signs Temp Pulse Resp BP Pulse Ox 06/29/17 11:43 98.1 F 111 16 110/80 95 06/29/17 10:25 16 93 06/29/17 06:25 98.2 F 106 16 110/90 94 06/29/17 04:06 17 93 06/29/17 04:00 98.2 F 108 16 103/76 90 06/28/17 22:04 18 95 06/28/17 19:00 97.8 F 114 18 122/87 95 06/28/17 16:19 16 96 06/28/17 16:13 97.7 F 110 17 119/87 94 06/28/17 15:39 98.1 F Intake and Output 06/28/17 06/29/17 06/29/17 23:59 07:59 15:59 Intake Total 200 / 200 120 / 120 0 / 0 Output Total 0 / 0 0 / 0 0 / 0 Balance 200 / 200 120 / 120 0 / 0 Intake: Oral 200 / 200 120 / 120 0 / 0 Output: Urine 0 / 0 0 / 0 0 / 0 Other: Meal Lunch Percent of Meal Consumed 10% # Voids 1 Weight 70.7 kg Patient Weight 06/29/17 23:59 Weight 70.7 kg General appearance: cooperative, no acute distress, no febrile - Head Head exam: Present: atraumatic - ENT ENT exam: Present: mucous membranes moist - Respiratory Respiratory exam: Present: CTAB. Absent: respiratory distress - Cardiovascular Cardiovascular exam: Present: RRR, +S1, +S2 - GI/Abdominal GI/Abdominal exam: Present: normal bowel sounds, soft. Absent: tenderness - Extremities Exam Extremities exam: Present: normal inspection. Absent: calf tenderness - Neurological Exam Neurological exam: Present: alert, oriented X3, no focal deficits, strengths equal and symetr throughout - Psychiatric Psychiatric exam: Present: normal affect, normal mood - Skin Skin exam: Present: normal color, warm Oncology: Obj Data - Labs CBC & Chem 7: 06/29/17 02:42 06/29/17 02:42 Labs: Laboratory Results - last 24 hr 06/28/17 06/29/17 06/29/17 11:11 02:42 02:42 WBC 12.2 H RBC 4.70 Hgb 14.5 Hct 44.4 MCV 94.5 MCH 30.9 MCHC 32.7 RDW 15.2 H Plt Count 261 MPV 10.7 Immature Gran % 0.6 Seg Neutrophils % 77.2 Lymphocytes % 10.6 Monocytes % 10.1 Eosinophils % 0.9 Basophils % 0.6 Neutrophils # 9.4 H Lymphocytes # 1.3 Monocytes # 1.2 Eosinophils # 0.1 Basophils # 0.1 Sodium 135 L Potassium 3.4 L Chloride 97 L Carbon Dioxide 30 H BUN 15 Creatinine 0.84 Est GFR ( Amer) > 60 Est GFR (Non-Af Amer) > 60 BUN/Creatinine Ratio 18 Glucose 127 H Calculated Osmolality 282 Calcium 8.9 Pleural Fluid Volume 1300.0 Pleural Appearance Clear Pleural pH 7.00 Pleural RBC < 0.002 Pleural Tot Nuc Cell 149 Pleural Neutrophils 58.0 Pleural Band Neuts Test Not Performed Pleural Eosinophils Test Not Performed Pleural Basophils Test Not Performed Pleural Lymphocytes % 30.0 Pleural Monocytes % 5.0 Pleural Other Cells % 7.0 - Impressions Impressions Chest X-Ray 06/27/17 10:54 IMPRESSION: Bilateral pleural effusions appear roughly similar to the prior examination. No evidence for pneumothorax. Stable diffuse bilateral increased interstitial markings. D/ / 06/27/2017 11:15:24 [facility]far[facility] Interpreting Provider: Bryce Alfaro MD Thoracentesis Ultrasound 06/28/17 00:00 IMPRESSION: Successful ultrasound guided thoracentesis. D/ / Jimbo Noble MD / Jimbo Noble MD Interpreting Provider: Jimbo Noble MD Chest X-Ray 06/28/17 15:35 IMPRESSION: No evidence of pneumothorax status post left-sided thoracentesis. Persistent bilateral airspace disease with small right-sided pleural effusion which is slightly increased compared to prior. D/ / Chrissy Hernandez MD / Chrissy Hernandez MD Interpreting Provider: Chrissy Hernandez MD - ABG Interpretation ABG results: PT/INR, D-dimer PT 11.6 Seconds (9.4-12.1) 06/26/17 05:00 Consult Discharge Plan - Plan [facility]errals: [facility] [Primary Care Provider] -
[2017-06-29] MEDS: Pregabalin 50 MG CAPSULE PO SCH ×2 (17:45→21:00)
[2017-06-29] MEDS: Budesonide/Formoterol 160/4.5 MDI IH SCH (22:06)
[2017-06-30] MEDS: Levalbuterol Neb 1.25 MG/3 ML IH SCH ×2 (03:28→10:56)
[2017-06-30] MEDS: *HR* HYDROcodone/Acet 5/325 mg TABLET PO PRN ×2 (04:07→11:41)
[2017-06-30] MEDS: *HR* Heparin 5,000 UNIT/ML VIAL SQ SCH (06:08)
[2017-06-30 06:56] VITALS: BP 103/78
[2017-06-30] MEDS: Pregabalin 50 MG CAPSULE PO SCH (07:37)
[2017-06-30 08:27] LABS: BUN/Creatinine Ratio 20 (6-26); Blood Urea Nitrogen 18 mg/dL (8-23); Calcium 8.7 mg/dL (8.6-10.3); Carbon Dioxide 31 mEq/L (23-29); Chloride 94 mEq/L (98-107); Glucose 109 mg/dL (70-105); Osmolality,Calculated 274 (280-300); Potassium 3.9 mEq/L (3.5-5.1); Sodium 131 mEq/L (136-145); eGFR For African Americans > 60 (> 60); eGFR For Non-African Americans > 60 (> 60)
[2017-06-30 08:35] LABS: Basophils # 0.1 K/mcL (0.0-0.2); Basophils % 0.6 %; Eosinophils # 0.3 K/mcL (0.0-0.6); Eosinophils % 1.8 %; Hematocrit 44.8 % (35.3-44.9); Hemoglobin 14.4 g/dL (11.5-15.4); Immature Granulocytes % 0.6 % (0-4); Lymphocytes # 1.2 K/mcL (0.6-4.6); Lymphocytes % 7.7 %; Mean Corpuscular HGB Conc 32.1 g/dL (31.6-35.5); Mean Corpuscular Hemoglobin 30.7 pg (28.0-33.3); Mean Corpuscular Volume 95.5 fL (83.0-100.0); Mean Platelet Volume 10.4 fL (9.4-12.4); Monocytes # 1.5 K/mcL (0.0-1.3); Monocytes % 9.4 %; Neutrophils # 12.6 K/mcL (1.6-8.9); Platelet Count 262 K/mcL (140-400); Red Blood Count 4.69 M/mcL (3.82-4.97); Red Cell Distribution Width 15.1 % (11.5-14.5); Segmented Neutrophils % 79.9 %
[2017-06-30] MEDS ORDERED: Cyanocobalamin (B-12) 1,000 MCG TABLET PO SCH (09:00)
[2017-06-30] MEDS ORDERED: BuPROPion XL (24 HR) 150 MG TABLET PO SCH (09:00)
[2017-06-30] MEDS: Budesonide/Formoterol 160/4.5 MDI IH SCH (10:56)
--- NOTE | 2017-06-30 13:53 | Discharge Summary ---
Orders not resulted at time of discharge: Pending orders 06/27/17 09:03 Culture,Body Fluid [RM] Routine Gram Stain [RM] Routine Cytology [PTH] Routine 06/30/17 10:11 Cytology [PTH] Routine Date of Encounter: 06/30/17 Time of Encounter: 13:47 Hospital course: Ms. Gilmore is a 61 year old female with history of breast cancer S/P mastectomy, suspect lung malignancy by PET scan recently, presented to ER for progressive shortness of breath and cough. Patient said she has shortness of breath since 6 months ago, with nonproductive cough, progressively getting worse, with exertional intolerance. Patient denies fever, chest pain, nausea. Patient denies leg swelling. Patient cannot lay flat for sleeping at home. Patient has a recent PET scan suspect lung neoplasm and is scheduled to see oncology next week. In emergency room, CAT scan shows large amount of bilateral pleural effusion and pulmonary nodules. Patient was admitted for further management. The radiographic findings were concerning for a malignant process, either recurrent breast cancer or new primary. Bilateral thoracentesis were performed for both diagnostic and therapeutic benefits. At the time of discharge cytology from left and right pleural fluid is still pending. If negative or insufficient malignant cells obtained Medical Oncology will pursue a biopsy. She is breathing more comfortably following the thoracenteses but continues to require 2L O2 per nasal cannula and will need home O2 for the short term. She has an appointment to follow up with Dr. Oscar on Tuesday. Medical oncology will folow her cytology which is still pending. She was discharged to home in stable condition. Discharge discussed with: patient, family, nurse, social work, case management Time spent discussing smoking cessation with patient: more than 10 minutes - Time Spent with Patient Total time spent providing and/or coordinating discharge services: Greater than 30 minutes - Discharge Medications Prescriptions: Ondansetron ODT [Zofran ODT] 4 mg SL Q4HR 7 Days #42 tab.rapdis Home Medications: BuPROPion XL (24 HR) [Wellbutrin Xl] 150 mg PO DAILY 06/25/17 [History] DULoxetine [Cymbalta] 30 mg PO DAILY 06/25/17 [History] Pregabalin [Lyrica] 200 mg PO TID 06/25/17 [History] Budesonide/Formoterol 160/4.5 [Symbicort 160/4.5] 1 puff IH BID 06/26/17 [ History] Cholecalciferol (Vitamin D3) [Vitamin D3] 2,000 unit PO DAILY 06/26/17 [History] Losartan Potassium [Cozaar] 50 mg PO DAILY 06/26/17 [History] Tramadol HCl [Ultram] 50 mg PO QID PRN 06/26/17 [History] Ondansetron ODT [Zofran ODT] 4 mg SL Q4HR 7 Days #42 tab.rapdis 06/30/17 [Rx] Allergies/Adverse Reactions: 3 Allergy/AdvReac Type Severity Reaction Status Date / Time No Known Allergies Allergy Verified 01/25/17 08:22 Date of admission: 06/25/17 21:40 [facility] care physician: [facility] Consults: 06/25/17 22:20 Consult to Oncology [CONS] Routine Consulting Provider: [facility] Reason for Consult: lung cancer Call Completed: No 06/27/17 09:02 Consult to Interventional Radiology [CONS] Routine Consulting Provider: Radiology [facility] Reason for Consult: Pleural effusion Call Completed: Yes 06/28/17 13:49 Consult to Interventional Radiology [CONS] Routine Consulting Provider: Radiology [facility] Reason for Consult: LEFT PLEURAL EFFUSION, NEEDS THORACENTESIS? Time Notified: 13:51 Call Completed: Yes - Constitutional Vitals: Temp Pulse Resp BP Pulse Ox 97.7 F 107 15 103/78 94 06/30/17 06:54 06/30/17 06:54 06/30/17 06:54 06/30/17 06:54 06/30/17 10:00 General appearance: Present: A&O X 3, pleasant, answers questions appropriately - Head Head exam: Present: atraumatic, normocephalic - Eye Eye exam: Present: PERRL, conjuntiva pink, sclera anicteric Pupils: Present: PERRL - Neck Neck exam general surgery: Present: supple, trachea midline. Absent: lymphadenopathy - Respiratory Respiratory exam: Present: CTAB. Absent: accessory muscle use, rales, rhonchi, wheezes - Cardiovascular Cardiovascular exam: Present: RRR, +S1, +S2. Absent: diastolic murmur, gallop, rubs, systolic murmur - GI/Abdominal GI/Abdominal exam: Present: normal bowel sounds, soft, no peritoneal signs. Absent: distended, tenderness - Extremities Exam Extremities exam: Present: warm, radial pulses palpable and symmetrical. Absent : calf tenderness, cyanotic, pedal edema - Neurological Exam Neurological exam: Present: CN II-XII intact, oriented X3, no focal deficits. Absent: pronater drift, facial droop, speech deficit - Psychiatric Psychiatric exam: Present: normal affect, normal mood - Skin Skin exam: Present: dry, intact - Patient Status Disposition: Home, Self-Care Condition: Serious - Discharge Instructions Instructions: Ondansetron (By mouth), Lung Cancer (DC), Pleural Effusion (DC) Follow Up With: HYACINTH,PCP [Primary Care Provider] - 07/05/17 10:30 am
[2017-06-30] MEDS: Ondansetron 4 MG/2 ML VIAL IVP PRN (14:29)
== END 2017-06-30 15:36 | disposition home or self-care (01) | DRG 181 ==
LOC: EMEROO 18:15 → ICNU 18:15 → SUATTDRO 21:40 → ICNU 21:57 → 2NENU 06-26 17:44
PROVIDERS: ADMIT Internal Medicine; ATTEND Student in an Organized Health Care Education/Training Program

== ENCOUNTER 2017-07-11 15:16 | Inpatient (IN) ==
--- NOTE | 2017-07-11 15:38 | Emergency Department Note ---
Disposition Clinical Impression: Pleural effusion Dyspnea Qualifiers: Dyspnea type: dyspnea on exertion Qualified Code(s): R06.09 - Other forms of dyspnea Disposition: Admitted As Inpatient Condition: Fair General Adult HPI - General Chief complaint: ED Shortness of Breath/Dyspnea Stated complaint: YELENA Time Seen by Provider: 07/11/17 15:21 Source: patient, EMS Mode of arrival: EMS Limitations: no limitations Nursing Notes Reviewed: Yes Vital Signs Reviewed: Yes - History of Present Illness HPI Narrative: Patient is a 61-year-old female with a past medical history of lung cancer with metastases to the bone transferred from the [facility] for the complaint of increasing shortness of breath with a history of pleural effusion. Patient recently had a pleural effusion drained the last 1-1/2 weeks. She had repeat imaging done that showed a reoccurring pleural effusion. Patient c/o SOB with dry cough. States the symptoms are worse with exertion. Pain Scale: 0 - Related Data Home Medications Medication Instructions Recorded Confirmed DULoxetine [Cymbalta] 30 mg PO DAILY 06/25/17 07/11/17 Budesonide/Formoterol 160/4.5 1 puff IH BID 06/26/17 07/11/17 [Symbicort 160/4.5] Cholecalciferol (Vitamin D3) 2,000 unit PO DAILY 06/26/17 07/11/17 [Vitamin D3] Losartan Potassium [Cozaar] 50 mg PO DAILY 06/26/17 07/11/17 Tramadol HCl [Ultram] 50 mg PO QID PRN 06/26/17 07/11/17 Oxygen [Oxygen] 2 - 3 l IN CONT 07/04/17 07/11/17 Turmeric Root Extract [Turmeric] 500 mg PO DAILY 07/04/17 07/11/17 Vitamin E (Dl,Tocopheryl Acet) 400 unit PO DAILY 07/04/17 07/11/17 [Vitamin E] Albuterol Sulfate [Albuterol 2 puff IH Q4H PRN 07/11/17 07/11/17 Inhaler] BuPROPion SR (12 HR) [Wellbutrin 150 mg PO DAILY 07/11/17 07/11/17 SR] Ondansetron ODT [Zofran ODT] 4 mg SL Q4HR PRN 07/11/17 07/11/17 Pregabalin [Lyrica] 300 mg PO BID 07/11/17 07/11/17 Previous Rx's Medication Instructions Recorded Anastrozole [Arimidex] 1 mg PO DAILY #90 tablet 07/04/17 Benzonatate [Tessalon] 200 mg PO Q4H PRN #30 capsule 07/04/17 Calcium Carbonate/Vitamin D3 1 each PO BID #60 tablet 07/04/17 [Calcium 500 + Vit D 200 Caplet] GuaiFENesin/Codeine [ROBITUSSIN 10 ml PO Q4-6H PRN 30 Days #480 07/04/17 w/CODEINE] liquid Allergies Allergy/AdvReac Type Severity Reaction Status Date / Time No Known Allergies Allergy Verified 07/11/17 15:31 All systems ED: reviewed and negative except as stated. Review of Systems: As Per HPI Constitutional: Denies: fever, chills Cardiovascular: Reports: dyspnea on exertion. Denies: chest pain Respiratory: Reports: cough, dyspnea. Denies: hemoptysis Gastrointestinal: Denies: abdominal pain, nausea, vomiting Genitourinary: Denies: dysuria Musculoskeletal: Denies: back pain, neck pain Past Medical History - Past Medical History Attestation: Yes The following information was validated with the patient. 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 She appears to be in mild respiratory distress. - General Limitations: no limitations General appearance: alert, in no apparent distress - Head Head exam: atraumatic, normocephalic, normal inspection - Eye Eye exam: Present: normal appearance, PERRL, EOMI - ENT ENT exam: normal exam, normal oropharynx, mucous membranes dry - Neck Neck exam: Present: normal inspection, full ROM - Chest Chest inspection: Present: normal inspection, symmetric chest wall rise. Absent : tenderness - Expanded Respiratory Exam Location: rales: Left, Right, decreased breath sounds: Left, Right, Lower - Cardiovascular Cardiovascular exam: Present: tachycardia, +S1, +S2 - Abdominal Exam Abdominal exam: Present: soft, Non-Tender, normal bowel sounds - Extremities Exam Extremities exam: Present: normal capillary refill. Absent: tenderness, pedal edema - Back Exam Back exam: Present: normal inspection - Neurological Exam Neurological exam: Present: alert, oriented X3 - Psychiatric Psychiatric exam: Present: normal affect, normal mood - Skin Skin exam: Present: warm, dry, intact, normal color Course Course Narrative: Upon review patient's paperwork from the [facility]. I do have the impression of her chest x-ray which was 2 views and done on today at 13:15 showed possible multifocal pulmonary disease which may represent pneumonia and/or pulmonary edema with associated pleural effusions and blunting of the diaphragmatic angles. Plan at this time is to work the patient up for possible infection as well as pleural effusion. The patient does have a recurring pleural effusion plan is to consult with IR to have this drained and that we will determine disposition. Discussed patient's case with the radiology Department discussed that if her 2 view chest x-ray does come back with a pleural effusion that requires draining I will consult them for IR consult today. - Reevaluation(s) Reevaluation #1: Discussed the patient's case with the IR electric container tester. They state they will see the patient in the morning for thoracentesis. Time: 17:20 Vital Signs Temperature 97.9 F 07/11/17 15:19 Pulse Rate 115 07/11/17 15:19 Respiratory Rate 22 07/11/17 15:19 Blood Pressure 152/108 07/11/17 15:19 O2 Sat by Pulse Oximetry 100 07/11/17 15:19 Temperature 97.4 F L 07/13/17 19:18 Pulse Rate 129 07/13/17 19:18 Respiratory Rate 14 07/13/17 19:18 Blood Pressure 91/53 07/13/17 19:18 O2 Sat by Pulse Oximetry 96 07/13/17 19:18 Oxygen Delivery Oxygen Delivery Nasal Cannula Medical Decision Making - Medical Records Medical records reviewed: Yes I reviewed the patient's medical records. - Lab Data Lab results reviewed: Yes I reviewed the patient's lab results. Result diagrams: 07/13/17 04:00 07/13/17 04:00 Lab Results 07/11/17 07/11/17 07/11/17 Range/Units 15:37 15:37 15:37 WBC 24.5 H (4.3-11.1) K/mcL RBC 4.81 (3.82-4.97) M/mcL Hgb 14.9 (11.5-15.4) g/dL Hct 44.5 (35.3-44.9) % MCV 92.5 (83.0-100.0) fL MCH 31.0 (28.0-33.3) pg MCHC 33.5 (31.6-35.5) g/dL RDW 14.2 (11.5-14.5) % Plt Count 447 H (140-400) K/mcL MPV 10.5 (9.4-12.4) fL Immature Gran % 0.9 (0-4) % Seg Neutrophils % 88.5 % Lymphocytes % 5.0 % Monocytes % 4.8 % Eosinophils % 0.5 % Basophils % 0.3 % Neutrophils # 21.7 H (1.6-8.9) K/mcL Lymphocytes # 1.2 (0.6-4.6) K/mcL Monocytes # 1.2 (0.0-1.3) K/mcL Eosinophils # 0.1 (0.0-0.6) K/mcL Basophils # 0.1 (0.0-0.2) K/mcL Platelet Estimate Normal (Normal) PT (9.4-12.1) Seconds INR APTT (26.0-36.0) Seconds Sodium 130 L (136-145) mEq/L Potassium 4.4 (3.5-5.1) mEq/L Chloride 89 L (98-107) mEq/L Carbon Dioxide 30 H (23-29) mEq/L BUN 12 (8-23) mg/dL Creatinine 0.67 (0.60-1.20) mg/dL Est GFR ( Amer) > 60 (> 60) Est GFR (Non-Af Amer) > 60 (> 60) BUN/Creatinine Ratio 18 (6-26) Glucose 100 (70-105) mg/dL Calculated Osmolality 270 L (280-300) Lactic Acid (0.5-2.2) mmol/L Calcium 9.1 (8.6-10.3) mg/dL Troponin I 0.03 (< 0.04) ng/mL B-Natriuretic Peptide 55 (Less than 100) pg/mL 07/11/17 07/11/17 07/11/17 Range/Units 15:37 16:37 17:53 WBC (4.3-11.1) K/mcL RBC (3.82-4.97) M/mcL Hgb (11.5-15.4) g/dL Hct (35.3-44.9) % MCV (83.0-100.0) fL MCH (28.0-33.3) pg MCHC (31.6-35.5) g/dL RDW (11.5-14.5) % Plt Count (140-400) K/mcL MPV (9.4-12.4) fL Immature Gran % (0-4) % Seg Neutrophils % % Lymphocytes % % Monocytes % % Eosinophils % % Basophils % % Neutrophils # (1.6-8.9) K/mcL Lymphocytes # (0.6-4.6) K/mcL Monocytes # (0.0-1.3) K/mcL Eosinophils # (0.0-0.6) K/mcL Basophils # (0.0-0.2) K/mcL Platelet Estimate (Normal) PT 12.1 (9.4-12.1) Seconds INR 1.1 APTT 27.2 (26.0-36.0) Seconds Sodium (136-145) mEq/L Potassium (3.5-5.1) mEq/L Chloride (98-107) mEq/L Carbon Dioxide (23-29) mEq/L BUN (8-23) mg/dL Creatinine (0.60-1.20) mg/dL Est GFR ( Amer) (> 60) Est GFR (Non-Af Amer) (> 60) BUN/Creatinine Ratio (6-26) Glucose (70-105) mg/dL Calculated Osmolality (280-300) Lactic Acid 1.6 1.7 (0.5-2.2) mmol/L Calcium (8.6-10.3) mg/dL Troponin I (< 0.04) ng/mL B-Natriuretic Peptide (Less than 100) pg/mL - Radiology Data Radiology results reviewed: Yes I reviewed the patient's radiology results. EXAMINATION: TWO VIEWS OF THE CHEST 07/11/2017 4:11 pm COMPARISON: 06/28/2017 HISTORY: ORDERING SYSTEM PROVIDED HISTORY: YELENA, hx pleural effusion 2ndary to CA Additional tech notes: 11 ... NR @ 1543 NURSE/IV Worsening cough, difficulty breathing FINDINGS: The heart size appears stable. Bilateral pleural effusions have increased compared to the previous exam. Bilateral airspace disease has progressed. XR/XR chest 2V IMPRESSION: Progression of bilateral airspace disease with increasing bilateral pleural effusions suggests a multi lobar pneumonia. D/ / Miah Osborne MD / Miah Osborne MD Interpreting Provider: Miah Osborne MD
--- NOTE | 2017-07-11 16:15 | Emergency Department Note ---
START Narrative - START START: I examined this patient and my medical decision-making was reviewed with the RETAIL INTERIOR DESIGNER/PA/Advanced Practice Nurse/Resident Physician. I agree with the documented findings, disposition and treatment plan as described except to the extent set forth below. ED attending note: Patient seen with emergency medicine resident Dr. Truong Zapata. We independently evaluated the patient. We independently had face-to- face contact with the patient. Please see a copy of his note for details of the history and physical, evaluation, management and disposition of this emergency Department patient. Briefly: 61-year-old female history of lung cancer recently diagnosed transferred by EMS from the [facility] for shortness of breath and considerations of reaccumulation of pleural effusion. Patient however pleurodesis done about a week or so ago. And she says she feels the same way now. The sender here for further evaluation and possible pleurodesis. Reviewing the paperwork from the Medical [facility] the chest x-ray findings per the radiologist's report seem to be more supporting multifocal pneumonia rather than a large effusion however we will repeat the x-ray here and that determination. This is a drainable collection she will be referred to interventional radiology and then have it drained. She symptomatically better she will be discharged home. If they are not large pleural effusion then she will be admitted and treated for pneumonia. Provided 30 minutes of critical care service for this patient. Disposition pending
[2017-07-11 16:46] LABS: BUN/Creatinine Ratio 18 (6-26); Blood Urea Nitrogen 12 mg/dL (8-23); Calcium 9.1 mg/dL (8.6-10.3); Carbon Dioxide 30 mEq/L (23-29); Chloride 89 mEq/L (98-107); Glucose 100 mg/dL (70-105); Osmolality,Calculated 270 (280-300); Potassium 4.4 mEq/L (3.5-5.1); Sodium 130 mEq/L (136-145); Troponin I 0.03 ng/mL (< 0.04); eGFR For African Americans > 60 (> 60); eGFR For Non-African Americans > 60 (> 60)
[2017-07-11 16:55] LABS: Basophils # 0.1 K/mcL (0.0-0.2); Basophils % 0.3 %; Eosinophils # 0.1 K/mcL (0.0-0.6); Eosinophils % 0.5 %; Hematocrit 44.5 % (35.3-44.9); Hemoglobin 14.9 g/dL (11.5-15.4); Immature Granulocytes % 0.9 % (0-4); Lymphocytes # 1.2 K/mcL (0.6-4.6); Mean Corpuscular HGB Conc 33.5 g/dL (31.6-35.5); Mean Corpuscular Volume 92.5 fL (83.0-100.0); Mean Platelet Volume 10.5 fL (9.4-12.4); Monocytes # 1.2 K/mcL (0.0-1.3); Monocytes % 4.8 %; Platelet Count 447 K/mcL (140-400); Red Blood Count 4.81 M/mcL (3.82-4.97); Red Cell Distribution Width 14.2 % (11.5-14.5); Segmented Neutrophils % 88.5 %
[2017-07-11 17:00] LABS: Neutrophils # 21.7 K/mcL (1.6-8.9)
[2017-07-11 17:24] LABS: Platelet Estimate Normal (Normal)
[2017-07-11 17:27] LABS: INR 1.1; Prothrombin Time 12.1 Seconds (9.4-12.1)
[2017-07-11 17:30] LABS: Activated Partial Thrombo Time 27.2 Seconds (26.0-36.0)
[2017-07-11] MEDS ORDERED: Piperacillin/Tazobactam 3.375 GM in 0.9 % Sodium Chloride Mini Bag 100 ML IVPB ONE (17:41)
--- NOTE | 2017-07-11 19:49 | Internal Med History&Physical ---
Date of Encounter: 07/11/17 Time of Encounter: 19:46 Assessment and Plan (1) Pneumonia Current visit: Yes Status: Acute Chest X-Ray 07/11/17 15:40 Progression of bilateral airspace disease with increasing bilateral pleural effusions suggests a multi lobar pneumonia. Sputum culture. CBC AM, BMP in AM. Blood culture. Continuous pulse oximetry. Urine test for Streptococcus pneumoniae and Legionella pneumophila. Coverage for Antibiotic coverage given concern for malignancy. Continue abx, de-escalate when possible following resulted blood cultures. Continue anti-tussive medication for comfort. Qualifiers: Pneumonia type: due to unspecified organism Laterality: bilateral Lung location: unspecified part of lung Qualified Code(s): J18.9 - Pneumonia, unspecified organism (2) COPD exacerbation Current visit: Yes Status: Acute Pt's continued SOB with long-term hx of nicotine abuse, concerning for COPD exacerbation. IV methylprednisolone while inpatient. Scheduled Duonebs q4h. Continuous pulse ox with supplemental oxygen, target pulse ox of 88 to 92%. Antibiotic coverage. Will Consult pulmonology for additional recs, due to concurrent co-morbidities and malignancy. (3) Pleural effusion, malignant Current visit: No Status: Acute Pt's clinical presentation possibly concerning for malignant pleural effusion. IR on consult for recs. (4) Lung cancer Current visit: No Status: Acute Positive for malignant cells in L pleural fluid. Pt has seen with oncology Dr. Lugo during last admission. Will consult oncology for recs during admission. Qualifiers: Laterality: left Lung location: overlapping sites Qualified Code(s): C34.82 - Malignant neoplasm of overlapping sites of left bronchus and lung (5) DVT prophylaxis Current visit: No Status: Acute MARY Score Minimum 7 (Ca, reduced mobility, acute infection) pharmacological prophylaxis is indicated. Heparin SubQ 5000 U Q12 (6) Sepsis Current visit: Yes Status: Acute Pt meets sepsis criteria, HR = 110 and WBC 24.5 with suspected source of infection likely 2/2 to pneumonia. Lactate acid 1.7 -Tissue perfusion with administration of IVF, plan to measure response with mean arterial pressure = or > 65 mmHg, per guidelines -Continue empiric antibiotic treatment -Follow-up lab studies pending, inc. CBC, serum chem panel -Blood culture results pending Qualifiers: Sepsis type: sepsis due to unspecified organism Qualified Code(s): A41.9 - Sepsis, unspecified organism (7) Depression Current visit: Yes Status: Acute Continue home medications. Qualifiers: Depression Type: major depressive disorder Major depression recurrence: recurrent Active/Remission status: currently active Major depression episode severity: severe Psychotic features: without psychotic features Qualified Code(s): F33.2 - Major depressive disorder, recurrent severe without psychotic features Internal Medicine - H&P: HPI Chief complaint: Shortness of Breath Admitted From: Hospital to Hospital Transfer History of present illness: Ms. Gilmore is a 61 year old female with hx of breast cancer s/p right mastectomy , chemo/rad and endocrine therapy and active lung cancer transferred by EMS from the [facility] for shortness of breath and clinical presentation concerning for pneumonia, as well as considerations of reaccumulation of pleural effusion s/p pleurodesis 1 week prior to presentation. Patient states she has been experiencing persistent, dry cough for approx 1 year, with associated 50 pound unintentional weight loss, and loss of appetite. Endorses exertional dyspnea, while ambulating at home. She underwent bronchoscopy in January 2017 for right middle lobe pneumonia which found a benign appearing lesion cause a narrowing of the right middle lobe , brushings/BAL were benign. Following CT findings on 05/09/2017 concerning for new sclerotic lesions within the lower thoracic spine, she underwent PET/CT which revealed sclerotic metastases in a thoracic and lumbar vertebrae and hypermetabolic mediastinal and bilateral hilar lymph nodes. IR performed thoracentesis on 06/28/17, with fluid sent for cytology. Pleural fluid pathology report was positive for malignant cells. Past Med Surg Social Fam HX - Past Medical History Medical history: arthritis, cancer Psychiatric history: no psych history - Past Surgical History Surgical History: breast surgery, cancer surgery, cholecystectomy, other - Social History Smoking Status: Former smoker Smokeless Tobacco Status: No Alcohol use: none Drug use: none - Family History Mother Living Status: Age at : 95 Cause of : OLD AGE Hx Family Cardiac Disorders: Yes (HTN, AFIB) Father Family Member Ethnicity: Non- Living Status: Age at : 70 Cause of : LUNG CANCER Hx Family Respiratory Disorders: Yes (LUNG CANCER) Hx Family Cancer: Yes (FATHER SIDE) Hx Family Musculoskeletal Disorders: Yes (DEG. DISC IN BACK) Internal Medicine - H&P: Meds DULoxetine [Cymbalta] 30 mg PO DAILY 06/25/17 [History] Budesonide/Formoterol 160/4.5 [Symbicort 160/4.5] 1 puff IH BID 06/26/17 [ History] Cholecalciferol (Vitamin D3) [Vitamin D3] 2,000 unit PO DAILY 06/26/17 [History] Losartan Potassium [Cozaar] 50 mg PO DAILY 06/26/17 [History] Tramadol HCl [Ultram] 50 mg PO QID PRN 06/26/17 [History] Anastrozole [Arimidex] 1 mg PO DAILY #90 tablet 07/04/17 [Rx] Benzonatate [Tessalon] 200 mg PO Q4H PRN #30 capsule 07/04/17 [Rx] Calcium Carbonate/Vitamin D3 [Calcium 500 + Vit D 200 Caplet] 1 each PO BID #60 tablet 07/04/17 [Rx] GuaiFENesin/Codeine [ROBITUSSIN w/CODEINE] 10 ml PO Q4-6H PRN 30 Days #480 liquid 07/04/17 [Rx] Oxygen [Oxygen] 2 - 3 l IN CONT 07/04/17 [History] Turmeric Root Extract [Turmeric] 500 mg PO DAILY 07/04/17 [History] Vitamin E (Dl,Tocopheryl Acet) [Vitamin E] 400 unit PO DAILY 07/04/17 [History] Albuterol Sulfate [Albuterol Inhaler] 2 puff IH Q4H PRN 07/11/17 [History] BuPROPion SR (12 HR) [Wellbutrin SR] 150 mg PO DAILY 07/11/17 [History] Ondansetron ODT [Zofran ODT] 4 mg SL Q4HR PRN 07/11/17 [History] Pregabalin [Lyrica] 300 mg PO BID 07/11/17 [History] 3 Allergy/AdvReac Type Severity Reaction Status Date / Time No Known Allergies Allergy Verified 07/11/17 15:31 All Systems PM: A 10-system review of systems was performed and is negative for pertinent findings except as documented above in the HPI. - Constitutional Constitutional: anorexia, fatigue, weight loss - Respiratory Respiratory: as per HPI, cough - Gastrointestinal Gastrointestinal: no abdominal pain - Psychiatric Psychiatric: abnormal sleep pattern (2/2 to persistent nighttime cough) - Constitutional Vitals: Temp Pulse Resp BP Pulse Ox 97.9 F 110 24 159/110 96 07/11/17 15:19 07/11/17 18:51 07/11/17 18:51 07/11/17 18:51 07/11/17 18:51 General appearance: Present: cooperative, A&O X 3, no acute distress - Head Head exam: Present: normocephalic - Respiratory Respiratory exam: Present: decreased breath sounds. Absent: chest wall tenderness Additional comments: coarse crakles - GI/Abdominal GI/Abdominal exam: Present: normal bowel sounds, soft. Absent: distended, rigid , tenderness, no peritoneal signs - Extremities Exam Extremities exam: Present: warm. Absent: calf tenderness, pedal edema, tenderness Internal Med - H&P Results - Labs CBC & Chem 7: 07/11/17 15:37 07/11/17 15:37 - Impressions ITS Impressions Chest X-Ray 07/11/17 15:40 IMPRESSION: Progression of bilateral airspace disease with increasing bilateral pleural effusions suggests a multi lobar pneumonia. D/ / Miah Osborne MD / Miah Osborne MD Interpreting Provider: Miah Osborne MD INATION: CT OF THE CHEST WITHOUT CONTRAST 07/08/2017 7:16 pm TECHNIQUE: CT of the chest was performed without the administration of intravenous contrast. Multiplanar reformatted images are provided for review. Dose modulation, iterative reconstruction, and/or weight based adjustment of the mA/kV was utilized to reduce the radiation dose to as low as reasonably achievable. COMPARISON: 06/25/2017 and 06/08/2017 HISTORY: ORDERING SYSTEM PROVIDED HISTORY: LUNG CA, SOB, YELENA Follow-up exam. FINDINGS: Mediastinum: Heart size is within normal limits. Trace pericardial effusion. The thoracic aorta is normal in caliber with mild atherosclerosis. The main pulmonary artery is normal in caliber. The esophagus is unremarkable. Stable subcentimeter mediastinal lymph nodes. No new thoracic adenopathy on this unenhanced study. Calcified left hilar lymph node. Lungs/pleura: Moderate to large right with small to moderate left pleural effusions not significantly changed since the prior exam. There are new multifocal ground-glass opacities throughout the left lung. There is diffuse bronchial wall thickening with several foci of mucoid impaction bilaterally. No significant interval change of focal opacity and volume loss associated with the right middle lobe. There is mild interlobular septal thickening. Calcified granuloma in the left lower lobe. No pneumothorax. The central airways are otherwise patent. Upper Abdomen: There are at least 2 discrete hypoattenuating liver lesions not well seen on the prior exams the largest of which measures up to 1.2 cm in segment V. Status post cholecystectomy. The adrenal glands are normal. Soft Tissues/Bones: Multifocal sclerotic lesions are noted within the thoracic spine similar in size and distribution since 06/08/2017. The largest of these measures up to 1.8 x 1.8 cm in the T12 vertebral body. No other acute osseous abnormality. CT/CT chest wo con IMPRESSION: 1. Increasing ground-glass opacities throughout the left lung suspicious for an acute infectious or inflammatory process. 2. Otherwise stable appearance of the chest with no significant interval change of bilateral pleural effusions, right greater than left. 3. At least 2 discrete hypoattenuating liver lesions are identified in the right hepatic lobe the larger of which measures up to 1.2 cm. Metastatic disease cannot be excluded and recommend further evaluation with liver MRI with Eovist. 4. Stable multifocal sclerotic osseous metastases The findings were sent to the [facility]iology [facility] at 7:35 pm on 07/08/2017to be communicated to a licensed caregiver. D/ / 07/08/2017 20:02:54 Karmen Gonsalez MD / alli Interpreting Provider: Karmen Gonsalez MD
[2017-07-11] MEDS ORDERED: Acetaminophen 325 MG TABLET PO PRN (20:13)
[2017-07-11] MEDS ORDERED: traMADol 50 MG TABLET PO PRN (20:38)
[2017-07-11] MEDS ORDERED: GuaiFENesin/Codeine Oral Soln 5 ML UDC PO PRN (20:38)
[2017-07-11] MEDS ORDERED: Ondansetron ODT 4 MG TAB.RAPDIS SL PRN (20:38)
[2017-07-11] MEDS ORDERED: Benzonatate 100 MG CAPSULE PO PRN (20:38)
[2017-07-11] MEDS ORDERED: Naloxone 0.4 MG/ML INJ IVP PRN (20:42)
[2017-07-11] MEDS: Pregabalin 75 MG CAPSULE PO SCH (21:31)
[2017-07-11] MEDS: *HR* Heparin 5,000 UNIT/ML VIAL SQ SCH (21:31)
[2017-07-11] MEDS: *HR* OxyCODONE Immed Rel 5 MG TABLET PO PRN (21:32)
[2017-07-11] MEDS: 0.9 % Sodium Chloride 1,000 ML IVC SCH (21:32)
[2017-07-11] MEDS ORDERED: Ipratropium/Albuterol Neb 3 ML ONE (22:20)
[2017-07-11 23:08] LABS: Influenza A PCR Negative (Negative); Influenza B PCR Negative (Negative)
[2017-07-11] MEDS: Ipratropium/Albuterol Neb 3 ML IH SCH (23:36)
[2017-07-11] MEDS: Budesonide/Formoterol 160/4.5 MDI IH SCH (23:37)
[2017-07-12] MEDS: Piperacillin/Tazobactam 3.375 GM in 0.9 % Sodium Chloride Mini Bag 100 ML IVPB SCH ×2 (01:22→12:41)
[2017-07-12] MEDS: Ipratropium/Albuterol Neb 3 ML IH SCH ×4 (04:11→22:21)
[2017-07-12 05:28] LABS: Red Blood Count 4.47 M/mcL (3.82-4.97); Red Cell Distribution Width 14.1 % (11.5-14.5)
[2017-07-12 05:38] LABS: Bilirubin,Direct 0.1 mg/dL (0.0-0.2); Bilirubin,Indirect 0.5 mg/dL (0.0-1.2); Bilirubin,Total 0.6 mg/dL (0.3-1.0); Globulin 2.9 g/dL (2.4-3.5); Total Protein 5.9 g/dL (6.4-8.9)
[2017-07-12 05:39] LABS: BUN/Creatinine Ratio 21 (6-26); Blood Urea Nitrogen 12 mg/dL (8-23); Calcium 8.5 mg/dL (8.6-10.3); Carbon Dioxide 24 mEq/L (23-29); Chloride 94 mEq/L (98-107); Glucose 108 mg/dL (70-105); Osmolality,Calculated 274 (280-300); Potassium 4.3 mEq/L (3.5-5.1); Sodium 132 mEq/L (136-145); eGFR For African Americans > 60 (> 60); eGFR For Non-African Americans > 60 (> 60)
[2017-07-12 05:45] LABS: Basophils # 0.1 K/mcL (0.0-0.2); Basophils % 0.5 %; Eosinophils # 0.2 K/mcL (0.0-0.6); Eosinophils % 0.8 %; Hematocrit 40.6 % (35.3-44.9); Hemoglobin 13.8 g/dL (11.5-15.4); Immature Granulocytes % 0.8 % (0-4); Immature Platelets 4.6 % (1.1-6.1); Lymphocytes # 1.3 K/mcL (0.6-4.6); Mean Corpuscular Hemoglobin 30.9 pg (28.0-33.3); Mean Corpuscular Volume 90.8 fL (83.0-100.0); Mean Platelet Volume 10.9 fL (9.4-12.4); Monocytes # 1.3 K/mcL (0.0-1.3); Monocytes % 5.9 %; Neutrophils # 18.7 K/mcL (1.6-8.9); Platelet Count 437 K/mcL (140-400)
[2017-07-12] MEDS: methylPREDNISolone 125 MG/2 ML VIAL IVP SCH ×3 (06:08→18:06)
[2017-07-12] MEDS: *HR* Heparin 5,000 UNIT/ML VIAL SQ SCH ×3 (06:08→23:58)
[2017-07-12] MEDS ORDERED: traMADol 50 MG TABLET PO PRN (08:04)
[2017-07-12] MEDS ORDERED: GuaiFENesin/Codeine Oral Soln 5 ML UDC PO PRN (08:04)
[2017-07-12] MEDS ORDERED: Benzonatate 100 MG CAPSULE PO PRN (08:04)
[2017-07-12] MEDS: *HR* OxyCODONE Immed Rel 5 MG TABLET PO PRN (09:54)
[2017-07-12] MEDS: BuPROPion XL (24 HR) 150 MG TABLET PO SCH (09:54)
[2017-07-12] MEDS: Anastrozole 1 MG TABLET PO SCH (09:54)
[2017-07-12] MEDS: Pregabalin 75 MG CAPSULE PO SCH ×2 (09:54→19:54)
--- NOTE | 2017-07-12 10:30 | Internal Med Progress Note ---
Date of Encounter: 07/12/17 Time of Encounter: 10:29 - Assessment and plan (1) COPD exacerbation Current Visit: Yes Status: Acute Assessment and plan: C/w IV steroids as is now IV Q12 hrs. Wean O2 as tolerated. Nebs. Will cancel pulm consult and consult if worsening hypoxia. (2) Pneumonia Current Visit: Yes Status: Acute Assessment and plan: Likely HCAP. Will keep vanco/zosyn today and f/u on cultures including blood, sputum and urine antigens. Wean O2 as tolerated. De-escalate abx possibly tomorrow Qualifiers: Pneumonia type: due to unspecified organism Laterality: bilateral Lung location: unspecified part of lung Qualified Code(s): J18.9 - Pneumonia, unspecified organism (3) Pleural effusion, malignant Current Visit: No Status: Acute Assessment and plan: s/p thoracentesis this morning. This is recurrent. Has known malignant pleural effusion. May benefit from pleurodesis. Will see what oncology recommends. (4) Breast cancer Current Visit: No Status: Chronic Assessment and plan: Oncology has been consulted on admission Qualifiers: Breast location: unspecified site of breast Estrogen receptor status: unspecified Patient sex: female Laterality: right Qualified Code(s): C50.911 - Malignant neoplasm of unspecified site of right female breast (5) Hypertension Current Visit: Yes Status: Acute Assessment and plan: Blood pressure is elevated. Resume patient losartan. We will add IV hydralazine to be used when necessary. Monitor blood pressure today. Qualifiers: Hypertension type: essential hypertension Qualified Code(s): I10 - Essential (primary) hypertension (6) DVT prophylaxis Current Visit: No Status: Acute Assessment and plan: Heparin subcutaneous - Subjective Interval history: Patient was seen and examined. She remains on about 2-3 L of nasal cannula oxygen. This is her baseline O2 needs. Admitted with pleural effusion status post thoracentesis yesterday. Being treated for pneumonia, CHF exacerbation and the pleural effusion. On admission oncology has been consult as the patient has based on documentation is metastatic breast cancer. Recently had a pleural effusion that was tapped with cytology, and back with malignant cells. - Constitutional Vitals: Temp Pulse Resp BP Pulse Ox 97.6 F 111 16 154/92 96 07/12/17 07:24 07/12/17 07:24 07/12/17 07:24 07/12/17 07:24 07/12/17 07:24 General appearance: Present: cooperative, A&O X 3, no acute distress Exam: GEN: NAD CVS: RRR. S1, S2, No m/r/g RESP: Diminished with bibasilar crackles ABD: Soft, NT, ND, +BS EXT: No edema. 2+ DP. No rashes NEURO: Nonfocal Internal Medicine: Result - Labs CBC & Chem 7: 07/12/17 04:42 07/12/17 04:42 Labs: Short CBC 07/12/17 Range/Units 04:42 WBC 21.7 H (4.3-11.1) K/mcL Hgb 13.8 (11.5-15.4) g/dL Hct 40.6 (35.3-44.9) % Plt Count 437 H (140-400) K/mcL Neutrophils # 18.7 H (1.6-8.9) K/mcL BMP 07/12/17 04:42 Sodium 132 L Potassium 4.3 Chloride 94 L Carbon Dioxide 24 BUN 12 Creatinine 0.58 L Glucose 108 H Calcium 8.5 L Liver Function 07/12/17 Range/Units 04:42 Total Bilirubin 0.6 (0.3-1.0) mg/dL Direct Bilirubin 0.1 (0.0-0.2) mg/dL AST 23 (13-39) Units/L ALT 19 (7-52) Units/L Alkaline Phosphatase 73 (34-104) Units/L Albumin 3.0 L (3.5-5.7) g/dL - ABG Interpretation ABG results: PT/INR, D-dimer PT 12.1 Seconds (9.4-12.1) 07/11/17 15:37 - Impressions Impressions Chest X-Ray 07/12/17 09:17 IMPRESSION: Decreased size of moderate bilateral pleural effusion status post thoracentesis. No evidence of pneumothorax. Stable patchy airspace disease throughout both lungs suggesting multifocal pneumonia. D/ / Rommel Portillo MD / Rommel Portillo MD Interpreting Provider: Rommel Portillo MD Consult Discharge Plan - Plan [facility]errals: [facility]Primary Care Provider[facility] -
--- NOTE | 2017-07-12 10:39 | Oncology Inp Consult Note ---
<Selena Kunz L - Last Filed: 07/12/17 16:03> Date of Encounter: 07/12/17 Time of Encounter: 10:38 Assessment and Plan (1) Breast cancer Status: Chronic Assessment and plan: As detailed in HPI, prior treatment included right mastectomy 02/26/2010 followed by adjuvant dose dense AC then dose dense paclitaxel with herceptin followed by herceptin x 1 year completed 04/2011. Adjuvant XRT 10/07-11/18/2010. Anastazole 01/2010-01/2015. Pleural fluid cytology 06/30/2017 confirmed metastatic breast carcinoma with IHC stains positive for ER/WI/ALLYSSA and rare focally for HER-2 by IHC stains (1+). CT chest ordered per Dr. Oscar as outpatient just prior to her admission had shown increasing ground-glass opacities throughout the left lung suspicious for an acute infectious or inflammatory process and at least 2 discrete hypoattenuating liver lesions are identified in the right hepatic lobe which may be concerning for metastatic disease. CT abdomen/pelvis has been ordered for further assessment of liver lesions, will order MRI abdomen if needed for further characterization following CT results. Patients sister reports patient has been sleep deprived for a number of days due to her symptoms but she is now experiencing concerning neurological symptoms evidenced by confusion at times, drowsiness and Asterixis. This may be drug induced due to the addition of oxycodone which has been stopped, however, will rule out intracranial progression with Brain MRI wo/w. Qualifiers: Breast location: unspecified site of breast Estrogen receptor status: unspecified Patient sex: female Laterality: right Qualified Code(s): C50.911 - Malignant neoplasm of unspecified site of right female breast (2) Pleural effusion, malignant Status: Acute Assessment and plan: S/P bilateral thoracentesis this morning with 1.6 L removed from right and 1 L removed from left. Given her recurrent malignant pleural effusion, she will need pleurx catheter placed, to be determined inpatient versus outpatient since she was just drained. Will check chest Xray tomorrow to assess fluid status and make better determinent on timing of catheter placement. Discussed appropriate timing of catheter placement with patients sister at bedside today. (3) Weight loss Status: Acute Assessment and plan: As detailed per HPI patient has had little to no oral intake which has been progressively worsening since her last admission. She had lost about 50 pounds over several months prior to her earlier admission , she appears to have had no further recent weight loss. According to patients sister, she reports early satiety after only a few bites of food, decreased appetite, dysphagia and sensation of globus. May order speech therapy eval with barium swallow once patient is feeling a bit better and more alert. She has become dehydrated, malnourished and progressively weak, only urinates 1- 2 times daily. Recommend PT/OT evals and SW consult for Home Health needs with home PT/OT. Continued IVF for hydration. Encouraged oral intake. Inpatient Rolling Machine Operator consulted for recommendations. - Data of Consult Patient: known to practice within the last 3 years Consult date: 07/12/17 Requesting Physician: Contreras England MD Primary Care Provider: [facility]CP [place] - Consult Narrative Reason for consult: Metastatic breast cancer History of present illness: Ms. Gilmore is a 61 year old female recently diagnosed with recurrent metastatic breast carcinoma. Initially presented in 01/2010 with right breast grade 2 stage IIIc (T2N3a) invasive ductal carcinoma. ER/WI positive, scd3tcm 2+ by IHC, FISH 1.9. S/P right mastectomy 02/26/[address] Brown followed by adjuvant dose dense AC then dose dense paclitaxel with herceptin followed by herceptin x 1 year completed 2011. Adjuvant XRT 10/07-11/18/2010. Anastazole 01/2010-01/2015. She has documented recurrence with bilateral pleural effusions, pulmonary nodule and bone involvement by CT 02/2017. PET/CT 06/08/17 shows mild uptake associated with an unchanged 0.9 cm x 0.6 cm solid nodule in the right lower lobe, persistent interlobular septal thickening, mosaic attenuation, and peribronchovascular groundglass and consolidative opacities bilaterally with associated uptake and sclerotic metastases in a few thoracic and lumbar vertebrae and possibly the bilateral 10th ribs, along with mildly hypermetabolic mediastinal and bilateral hilar lymph nodes, potentially reactive or metastatic. Following her hopsitalization in early June 2017, pleural fluid cytology confirmed metastatic breast carcinoma with IHC stains positive for ER/WI/ALLYSSA and rare focally for HER-2 negative (1+) by IHC stains. At her recent follow up with Dr. Oscar, he was awaiting final pathology report to confirm suspected breast primary, had initiated AI therapy with Arimidex, and planned to potentially start palbociclib pending her final pathology report. She was planned to follow up 07/14/17 to discuss final path and begin treatment planning. Since Dali's discharge from the hospital almost 2 weeks ago, she has been living with her sister who is helping to care for her. Between her siblings she has had 24 hour care. She has gotten progressively weak and SOB since her discharge. Her sister describes that it has progressed so much to the point where she can barely ambulate to the bathroom without experiencing respiratory distress with description of what sounds to almost like retractions with exertion. She continues to lose weight (now over a 50 pound weight loss), her appetite is very poor, she reports dysphagia with a feeling of globus sensation and early satiety after only a few bites of food. She urinates maybe once daily , is dehydrated and has little to no liquid intake. Patient's sister reports that Ms. Gilmore cannot ambulate without uncontrolled pain but patient will not complain of pain. She also reports abdominal pain, nausea controlled with anti- emetics and loose stool. er sister had been in contact with [facility] regarding her concerns, she had a [facility] who then transferred Ms. Gilmore to [facility] ER for further workup. Meanwhile, the cancer center was attempting to contact patient to recommend she present to ER. CT chest ordered per Dr. Oscar as outpatient just prior to her admission had shown increasing ground-glass opacities throughout the left lung suspicious for an acute infectious or inflammatory process and at least 2 discrete hypoattenuating liver lesions are identified in the right hepatic lobe which may be concerning for metastatic disease. Past Med Surg Social Fam HX - Past Medical History Medical history: arthritis, cancer Psychiatric history: no psych history - Past Surgical History Surgical History: breast surgery, cancer surgery, cholecystectomy, other - Social History Smoking Status: Former smoker Smokeless Tobacco Status: No Alcohol use: none Drug use: none - Family History Mother Living Status: Age at : 95 Cause of : OLD AGE Hx Family Cardiac Disorders: Yes (HTN, AFIB) Father Family Member Ethnicity: Non- Living Status: Age at : 70 Cause of : LUNG CANCER Hx Family Respiratory Disorders: Yes (LUNG CANCER) Hx Family Cancer: Yes (FATHER SIDE) Hx Family Musculoskeletal Disorders: Yes (DEG. DISC IN BACK) Medications and Allergies DULoxetine [Cymbalta] 30 mg PO DAILY 03/03/18 [History] Budesonide/Formoterol 160/4.5 [Symbicort 160/4.5] 1 puff IH BID 06/26/17 [ History] Cholecalciferol (Vitamin D3) [Vitamin D3] 2,000 unit PO DAILY 06/26/17 [History] Losartan Potassium [Cozaar] 50 mg PO DAILY 06/26/17 [History] Tramadol HCl [Ultram] 50 mg PO QID PRN 06/26/17 [History] Anastrozole [Arimidex] 1 mg PO DAILY #90 tablet 07/04/17 [Rx] Benzonatate [Tessalon] 200 mg PO Q4H PRN #30 capsule 07/04/17 [Rx] Calcium Carbonate/Vitamin D3 [Calcium 500 + Vit D 200 Caplet] 1 each PO BID #60 tablet 07/04/17 [Rx] GuaiFENesin/Codeine [ROBITUSSIN w/CODEINE] 10 ml PO Q4-6H PRN 30 Days #480 liquid 07/04/17 [Rx] Oxygen [Oxygen] 2 - 3 l IN CONT 07/04/17 [History] Turmeric Root Extract [Turmeric] 500 mg PO DAILY 07/04/17 [History] Vitamin E (Dl,Tocopheryl Acet) [Vitamin E] 400 unit PO DAILY 07/04/17 [History] Albuterol Sulfate [Albuterol Inhaler] 2 puff IH Q4H PRN 07/11/17 [History] BuPROPion SR (12 HR) [Wellbutrin SR] 150 mg PO DAILY 07/11/17 [History] Ondansetron ODT [Zofran ODT] 4 mg SL Q4HR PRN 07/11/17 [History] Pregabalin [Lyrica] 300 mg PO BID 07/11/17 [History] 3 Allergy/AdvReac Type Severity Reaction Status Date / Time No Known Allergies Allergy Verified 07/11/17 15:31 Constitutional: Present: anorexia, fatigue, malaise, weakness, weight loss. Absent: chills, fever(s), frequent falls Eyes: Absent: change in vision Nose, mouth and throat: Present: dysphagia Additional comments: globus sensation Cardiovascular: Absent: chest pain, irregular heart rhythm, palpitations Respiratory: Present: as per HPI, cough, dyspnea, pain on inspiration, pain with cough Gastrointestinal: Present: abdominal pain, change in stool character, loose stools, nausea. 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 Absent: respiratory distress - Cardiovascular Cardiovascular exam: Present: RRR, +S1, +S2 - GI/Abdominal GI/Abdominal exam: Present: normal bowel sounds, soft. Absent: guarding, rebound, tenderness - Extremities Exam Extremities exam: Present: normal inspection. Absent: calf tenderness - Neurological Exam Neurological exam: Present: alert, oriented X3, no focal deficits, strengths equal and symetr throughout Additional comments: drowsy but arousable, Asterixis - Psychiatric Psychiatric exam: Present: normal affect, normal mood - Skin Skin exam: Present: dry, intact, pallor, warm Oncology - Results Labs: Short CBC 07/12/17 Range/Units 04:42 WBC 21.7 H (4.3-11.1) K/mcL Hgb 13.8 (11.5-15.4) g/dL Hct 40.6 (35.3-44.9) % Plt Count 437 H (140-400) K/mcL Neutrophils # 18.7 H (1.6-8.9) K/mcL BMP 07/12/17 04:42 Sodium 132 L Potassium 4.3 Chloride 94 L Carbon Dioxide 24 BUN 12 Creatinine 0.58 L Glucose 108 H Calcium 8.5 L Liver Function 07/12/17 Range/Units 04:42 Total Bilirubin 0.6 (0.3-1.0) mg/dL Direct Bilirubin 0.1 (0.0-0.2) mg/dL AST 23 (13-39) Units/L ALT 19 (7-52) Units/L Alkaline Phosphatase 73 (34-104) Units/L Albumin 3.0 L (3.5-5.7) g/dL Consult Discharge Plan - Plan [facility]errals: [facility] [Primary Care Provider] - <Hector Lugo - Last Filed: 07/13/17 09:25> Date of Encounter: 07/12/17 - Data of Consult Requesting Physician: Contreras England MD Primary Care Provider: PCP [place] - Consult Narrative History of present illness: Ms. Gilmore is a 61 year old female Oncology - Exam - Constitutional Vitals: Temp Pulse Resp BP Pulse Ox 97.4 F L 106 16 114/76 90 07/13/17 05:31 07/13/17 05:31 07/13/17 05:31 07/13/17 05:31 07/13/17 09:09 Oncology - Results Labs: Short CBC 07/13/17 Range/Units 04:00 WBC 36.9 H* D (4.3-11.1) K/mcL Hgb 14.3 (11.5-15.4) g/dL Hct 42.4 (35.3-44.9) % Plt Count 486 H (140-400) K/mcL Neutrophils # 33.9 H (1.6-8.9) K/mcL BMP 07/13/17 04:00 Sodium 135 L Potassium 3.4 L Chloride 96 L Carbon Dioxide 28 BUN 15 Creatinine 0.95 Glucose 146 H Calcium 8.3 L - Attending Attestation seen and examined patient and agree with assessment and plan. Patient is modestlhy encephalopathic with asterixis. I suspecty the narcotics. Stop oxycodoner and restart tramadol at higher dose. However, we will also get MRI brain to further stage the patient. She has new possible liver mets identified on CT chest. Will get CT A/P to evaluate further. Plan for pleur-x as outpatient unless the fluid reaccumulates more quickly. Given her leukocytosis, I do agree with abx for now.
[2017-07-12] MEDS: Budesonide/Formoterol 160/4.5 MDI IH SCH ×2 (10:48→22:21)
[2017-07-12] MEDS ORDERED: Dextrose Gel 15 GM/37.5 ML TUBE PO PRN ×2 (17:44)
[2017-07-12] MEDS ORDERED: *HR* Dextrose 50 % in Water (Syg) 50 ML SYRINGE IVP PRN (17:44)
[2017-07-12] MEDS ORDERED: D5% in Water 1,000 ML IVC PRN (17:44)
[2017-07-12] MEDS ORDERED: 0.9 % Sodium Chloride 250 ML ONE (19:58)
[2017-07-12] MEDS: traMADol 50 MG TABLET PO PRN (20:16)
[2017-07-12] MEDS ORDERED: Insulin LISPRO 300 UNITS/3 ML VIAL SQ SCH (21:00)
--- NOTE | 2017-07-12 23:25 | Electrocardiograph Report ---
[address] [place] [address] Test Date: 2017-07-11 Pat Name: Dali Gilmore Department: 103 Room: 2A34 Gender: F Repeater Chief: : 1955 Requested By: Truong Zapata Order Number: [id number] Reading MD: Rupert Massey DO Measurements Intervals [place] Rate: 117 P: 26 UT: 124 QRS: 57 QRSD: 84 T: 43 QT: 319 QTc: 389 Interpretive Statements SINUS TACHYCARDIA LOW QRS VOLTAGE IN PRECORDIAL LEADS Electronically Signed On 07-12-2017 23:23:49 EDT by Rupert Massey DO
[2017-07-13] MEDS: Ipratropium/Albuterol Neb 3 ML IH SCH ×4 (04:21→22:24)
[2017-07-13] MEDS: methylPREDNISolone 125 MG/2 ML VIAL IVP SCH (06:25)
[2017-07-13] MEDS: *HR* Heparin 5,000 UNIT/ML VIAL SQ SCH ×3 (06:26→21:12)
[2017-07-13 07:16] LABS: BUN/Creatinine Ratio 16 (6-26); Blood Urea Nitrogen 15 mg/dL (8-23); Calcium 8.3 mg/dL (8.6-10.3); Carbon Dioxide 28 mEq/L (23-29); Chloride 96 mEq/L (98-107); Glucose 146 mg/dL (70-105); Osmolality,Calculated 283 (280-300); Potassium 3.4 mEq/L (3.5-5.1); Sodium 135 mEq/L (136-145); eGFR For African Americans > 60 (> 60); eGFR For Non-African Americans 60 (> 60)
[2017-07-13 07:20] LABS: Basophils % 0.2 %; Hemoglobin 14.3 g/dL (11.5-15.4); Immature Granulocytes % 1.1 % (0-4); Monocytes % 4.3 %
[2017-07-13 07:21] LABS: Basophils # 0.1 K/mcL (0.0-0.2); Hematocrit 42.4 % (35.3-44.9); Lymphocytes # 0.9 K/mcL (0.6-4.6); Lymphocytes % 2.5 %; Mean Corpuscular HGB Conc 33.7 g/dL (31.6-35.5); Mean Corpuscular Volume 91.8 fL (83.0-100.0); Mean Platelet Volume 10.6 fL (9.4-12.4); Monocytes # 1.6 K/mcL (0.0-1.3); Platelet Count 486 K/mcL (140-400); Red Blood Count 4.62 M/mcL (3.82-4.97); Red Cell Distribution Width 14.4 % (11.5-14.5); Segmented Neutrophils % 91.9 %
[2017-07-13 07:23] LABS: Neutrophils # 33.9 K/mcL (1.6-8.9)
[2017-07-13] MEDS: Piperacillin/Tazobactam 3.375 GM in 0.9 % Sodium Chloride Mini Bag 100 ML IVPB SCH ×6 (08:05→18:44)
[2017-07-13] MEDS: 0.9 % Sodium Chloride 1,000 ML IVC SCH (08:05)
[2017-07-13] MEDS: Pregabalin 75 MG CAPSULE PO SCH (08:56)
[2017-07-13] MEDS: BuPROPion XL (24 HR) 150 MG TABLET PO SCH (08:56)
[2017-07-13] MEDS: Anastrozole 1 MG TABLET PO SCH (08:56)
[2017-07-13] MEDS: Insulin LISPRO 300 UNITS/3 ML VIAL SQ SCH ×3 (08:59→17:31)
[2017-07-13] MEDS: traMADol 50 MG TABLET PO PRN (09:07)
[2017-07-13] MEDS ORDERED: Aminoglycoside Consult 1 EACH MC ONE (09:09)
--- NOTE | 2017-07-13 10:11 | Internal Med Progress Note ---
Date of Encounter: 07/13/17 Time of Encounter: 10:08 - Assessment and plan (1) Sepsis Current Visit: Yes Status: Acute Assessment and plan: meets criteria with leukoctosis and tachycarida. Has pneumonia as a source. Treatment as below. Normal lactic acid Qualifiers: Sepsis type: sepsis due to unspecified organism Qualified Code(s): A41.9 - Sepsis, unspecified organism (2) COPD exacerbation Current Visit: Yes Status: Acute Assessment and plan: C/w IV steroids. Wean down to daily. Patient has WBC count of 36.9 today compared to 21.7 yesterday. Unsure if this is all steroids. Afebrile. Wean O2 as tolerated. Nebs. (3) Pneumonia Current Visit: Yes Status: Acute Assessment and plan: Likely HCAP. Will keep vanco/zosyn today and f/u on cultures including blood, sputum and urine antigens. Wean O2 as tolerated. No De-escalation of abx yet with the elevated WBCs Qualifiers: Pneumonia type: due to unspecified organism Laterality: bilateral Lung location: unspecified part of lung Qualified Code(s): J18.9 - Pneumonia, unspecified organism (4) Pleural effusion, malignant Current Visit: No Status: Acute Assessment and plan: s/p thoracentesis this stay. This is recurrent. Has known malignant pleural effusion. May benefit from pleurodesis. (5) Breast cancer Current Visit: No Status: Chronic Assessment and plan: Oncology has been consulted on admission. Being worked with imaging studies for mets. Qualifiers: Breast location: unspecified site of breast Estrogen receptor status: unspecified Patient sex: female Laterality: right Qualified Code(s): C50.911 - Malignant neoplasm of unspecified site of right female breast (6) Hypertension Current Visit: Yes Status: Acute Assessment and plan: Blood pressure is controlled. c/w losartan. IV hydralazine to be used when necessary. Monitor blood pressure Qualifiers: Hypertension type: essential hypertension Qualified Code(s): I10 - Essential (primary) hypertension (7) Severe protein-calorie malnutrition Current Visit: Yes Status: Acute Assessment and plan: dietary following (8) DVT prophylaxis Current Visit: No Status: Acute Assessment and plan: Heparin subcutaneous - Subjective Interval history: Patient was seen and examined. She remains on about 2-3 L of nasal cannula oxygen. This is her baseline O2 needs. Seen by oncology yesterday metastatic breast cancer. Admitted with pleural effusion status post thoracentesis. Being treated for pneumonia and No Cpleural effusion. metastatic breast cancer. Recently had a pleural effusion that was tapped with cytology, and back with malignant cells. - Constitutional Vitals: Temp Pulse Resp BP Pulse Ox 97.4 F L 106 16 114/76 90 07/13/17 05:31 07/13/17 05:31 07/13/17 05:31 07/13/17 05:31 07/13/17 09:09 General appearance: Present: cooperative, A&O X 3, no acute distress Exam: GEN: NAD CVS: RRR. S1, S2, No m/r/g RESP: Diminished with bibasilar crackles ABD: Soft, NT, ND, +BS EXT: No edema. 2+ DP. No rashes NEURO: Nonfocal Internal Medicine: Result - Labs CBC & Chem 7: 07/13/17 04:00 07/13/17 04:00 Labs: Short CBC 07/13/17 Range/Units 04:00 WBC 36.9 H* D (4.3-11.1) K/mcL Hgb 14.3 (11.5-15.4) g/dL Hct 42.4 (35.3-44.9) % Plt Count 486 H (140-400) K/mcL Neutrophils # 33.9 H (1.6-8.9) K/mcL BMP 07/13/17 04:00 Sodium 135 L Potassium 3.4 L Chloride 96 L Carbon Dioxide 28 BUN 15 Creatinine 0.95 Glucose 146 H Calcium 8.3 L - ABG Interpretation ABG results: PT/INR, D-dimer PT 12.1 Seconds (9.4-12.1) 07/11/17 15:37 - Impressions Impressions Thoracentesis Ultrasound 07/12/17 00:00 IMPRESSION: Successful ultrasound guided thoracentesis. D/ / Tyler Villalobos MD / Tyler Villalobos MD Interpreting Provider: Tyler Villalobos MD Thoracentesis Ultrasound 07/12/17 00:00 IMPRESSION: Successful ultrasound guided thoracentesis. D/ / Tyler Villalobos MD / Tyler Villalobos MD Interpreting Provider: Tyler Villalobos MD Abdomen/Pelvis CT 07/12/17 12:01 IMPRESSION: 1. Marked mural thickening and surrounding fat stranding involving the sigmoid colon, compatible with colitis. 2. Multiple low-density lesions within hepatic parenchyma which remain very suspicious. Again, the primary differential consideration is metastatic disease, especially given the patient's history of lung cancer. Conceivably, these could represent areas of inflammation/infection given the colitis, but that is considerably less likely. Dedicated hepatic MRI with Eovist may be helpful for further characterization, although histopathologic correlation may ultimately be necessary. 3. Bilateral pleural effusions, greater on the right, decreased when compared to the previous exam. Adjacent airspace disease is noted. Alveolar ground-glass opacity throughout both lungs is noted as well. Pneumonia and pulmonary edema are both considered. D/ / León Monterroso MD / León Monterroso MD Interpreting Provider: León Monterroso MD Consult Discharge Plan - Plan [facility]errals: [facility] [Primary Care Provider] -
[2017-07-13] MEDS: Budesonide/Formoterol 160/4.5 MDI IH SCH (11:23)
[2017-07-13 16:27] LABS: ABG Base Excess 3 mEq/L (-2 to 3); ABG HCO3 28 mEq/L (21-27); ABG Oxygen Saturation 91 % (95-98); ABG PCO2 44 mmHg (35-45); ABG PH 7.42 pH Units (7.32-7.45); ABG PO2 60 mmHg (85-104); ABG TCO2 30 mEq/L (20-26)
[2017-07-13] MEDS ORDERED: Furosemide 40 MG/4 ML VIAL IVP ONE ×2 (16:32→16:44)
--- NOTE | 2017-07-13 16:36 | Event Note ---
Date of Encounter: 07/13/17 Time of Encounter: 16:33 Patient with worsening respiratory status. Requiring 10 L of face ask oxygen. She is tachycardic into the 120s. Blood pressure is stable. Afebrile. Using accessory muscles to breathe. Oncology was in the room when this sudden change happened and ordered a CTA of the chest to rule out a PE. Chest x-ray is also been ordered. I hear crackles on examination throughout. I am worried the patient is reaccumulating fluid. We will give her 40 mg of IV Lasix and check an EKG. Agree with CTA chest. An ABG came back with pH of 7.42 PCO2 44 PO2 of 60 and HCO3 of 28. Multiple family members bedside and the patient herself is states that she is a full code.
--- NOTE | 2017-07-13 16:44 | Oncology Inp Progress Note ---
<Selena Kunz L - Last Filed: 07/14/17 09:46> Date of Encounter: 07/13/17 Time of Encounter: 15:50 (1) Breast cancer Status: Chronic Assessment and plan: Prior treatment included right mastectomy 02/26/2010 followed by adjuvant dose dense AC then dose dense paclitaxel with herceptin followed by herceptin x 1 year completed 04/2011. Adjuvant XRT 10/07-11/18/2010. Anastazole 01/2010-2014. Pleural fluid cytology 06/30/2017 confirmed metastatic breast carcinoma with IHC stains positive for ER/DE/ALLYSSA and HER-2 negative (1+) by IHC stains. CT abdomen/pelvis did help to better characterize multiple low-density lesions within hepatic parenchyma which appear suspicious for metastatic disease and are new since PET/CT in May. MRI brain negative for intracranial metastases. 07/14/17-Patient now in acute respiratory distress, ordered stat ABG and CTA chest to assess PE given her acute onset of hypoxia, tachycardia and respiratory distress. PE remains in differential however, respiratory symptoms may be secondary to aggressive malignancy and worsening lymphangitic spread. WBC count increased to 36 today, CT abd/pel also shows evidence of colitis. Discussed plan with multiple family members at bedside and with patient. Nurse updated on plan, nurse to also update hospitalist. Dr. Lugo is awaiting CTA results and will discuss further with family and patient at bedside, please refer to Dr. Lugo's attestation below for additional details. Pending CTA results, goals of care and code status will need to be discussed further as detailed below in attestation. (2) Pleural effusion, malignant Status: Acute Assessment and plan: S/P bilateral thoracentesis with 1.6 L removed from right and 1 L removed from left. Given her recurrent malignant pleural effusion, she will need pleurx catheter placed, this will likely need to be outpatient pending other work up and resolution of now more acute issues. (3) Weight loss Status: Acute Assessment and plan: Patient has had little to no oral intake which has been progressively worsening since her last admission. She had lost about 50 pounds over several months prior to her earlier admission. According to patients sister, she reports early satiety after only a few bites of food, decreased appetite, dysphagia and sensation of globus. May order speech therapy eval with barium swallow, which may need to be outpatient pending her acute issues resolve. She has become dehydrated, malnourished and progressively weak, only urinates 1- 2 times daily. Recommend PT/OT evals and SW consult for Home Health needs with home PT/OT. Continued IVF for hydration. Encouraged oral intake. Inpatient Financial Systems Administrator consulted for recommendations Oncology: Subj Interval history: Entered room to find Ms. Gilmore in acute respiratory distress. Respiratory at bedside administering breathing treatment. Multiple family members at bedside, they state that patient began having labored respirations less than 30 minutes ago which started quite acutely. Respirations are labored with retractions, tachypneic, she is tachycardiac and hypoxic, sating about 87% on 10L. Nurse notified to order stat CTA chest and ABG and to inform hospitalist regarding acute changes. Patients condition is guarded at this time. Discussed with family at bedside. Awaiting CTA results for further family discussion. - Constitutional Vitals: Vital Signs Temp Pulse Resp BP Pulse Ox 07/13/17 15:55 97.6 F 120 25 151/99 87 07/13/17 11:26 22 91 07/13/17 09:09 90 07/13/17 05:31 97.4 F L 106 16 114/76 94 07/13/17 04:22 17 93 07/13/17 00:47 97.7 F 108 18 125/70 92 07/12/17 22:21 18 94 07/12/17 20:56 97.9 F 79 16 122/66 94 07/12/17 20:00 94 Intake and Output 07/13/17 07/13/17 07/13/17 07:59 15:59 23:59 Intake Total 1200 / 1200 Output Total 500 / 500 Balance 700 / 700 Intake: IV Fluids 100 / 100 Zosyn 3.375 GM In 0.9 % Sodium 100 / 100 Chloride (Mini-Bag +) 100 ML @ 25 mls/hr IVPB Q8H [facility] Rx#: [id number] Oral 1100 / 1100 Output: Urine 500 / 500 Other: Meal Lunch Percent of Meal Consumed 10% Weight 69.428 kg Blood Glucose* 126 170 Patient Weight 07/13/17 23:59 Weight 69.428 kg General appearance: no acute distress, no febrile Exam: toxic appearing, chronically ill - Head Head exam: Present: atraumatic - Respiratory Respiratory exam: Present: accessory muscle use, respiratory distress, rhonchi, wheezes - Cardiovascular Cardiovascular exam: Present: RRR, +S1, +S2, tachycardia - GI/Abdominal GI/Abdominal exam: Present: normal bowel sounds, soft. Absent: tenderness - Extremities Exam Extremities exam: Present: normal inspection. Absent: calf tenderness - Neurological Exam Neurological exam: Present: alert, no focal deficits - Psychiatric Psychiatric exam: Present: anxious - Skin Skin exam: Present: diaphoretic, pallor, warm Oncology: Obj Data - Labs CBC & Chem 7: 07/13/17 04:00 07/13/17 04:00 - Impressions Impressions Brain MRI 07/13/17 08:00 IMPRESSION: No acute infarct, intracranial hemorrhage, significant mass effect. No evidence of abnormal contrast enhancement. Mild amount of chronic small vessel ischemic white matter disease. Mild diffuse cerebral volume loss. D/ / 07/13/2017 11:25:02 Adolph Gonsalez MD / mar Interpreting Provider: Adolph Gonsalez MD Chest X-Ray 07/13/17 16:00 IMPRESSION: Diffuse pulmonary infiltrates with bilateral pleural effusions raises concern for pulmonary edema versus ARDS. This is slightly worse than on the previous exam. clinical correlation and follow-up studies recommended. D/ / Brant He MD / Brant He MD Interpreting Provider: Brant He MD - ABG Interpretation ABG results: ABG ABG pH 7.42 pH Units (7.32-7.45) 07/13/17 16:18 ABG pCO2 44 mmHg (35-45) 07/13/17 16:18 ABG pO2 60 mmHg (85-104) L 07/13/17 16:18 ABG O2 Saturation 91 % (95-98) L 07/13/17 16:18 PT/INR, D-dimer PT 12.1 Seconds (9.4-12.1) 07/11/17 15:37 Consult Discharge Plan - Plan [facility]errals: [facility] [Primary Care Provider] - <Hector Lugo - Last Filed: 07/14/17 14:53> Date of Encounter: 07/13/17 - Constitutional Vitals: Vital Signs Temp Pulse Resp BP Pulse Ox 07/14/17 04:02 26 83 07/14/17 04:00 97.7 F 14 83 07/14/17 00:50 14 91 07/14/17 00:15 90 07/13/17 22:24 22 96 07/13/17 19:18 97.4 F L 129 14 91/53 96 07/13/17 15:55 97.6 F 120 25 151/99 87 Intake and Output 07/14/17 07/14/17 07/14/17 00:59 08:59 16:59 Intake Total 387 / 387 110 / 110 Output Total 725 / 725 150 / 150 Balance -338 / -338 -40 / -40 Intake: IV Fluids 362 / 362 100 / 100 FentaNYL (PF) 1,000 MCG In 0.9 12 / 12 % Sodium Chloride 80 ML @ 20 MCG/HR 2 mls/hr IVC CONT [facility] Rx #:[id number] Zosyn 3.375 GM In 0.9 % Sodium 100 / 100 100 / 100 Chloride (Mini-Bag +) 100 ML @ 25 mls/hr IVPB Q8H [facility] Rx#: [id number] Vancocin 1,250 MG In 0.9 % 250 / 250 Sodium Chloride 250 ML @ 166.67 mls/hr IVPB Q24H [facility] Rx#: [id number] Oral 25 / 25 10 / 10 Output: Catheter 725 / 725 150 / 150 Other: Meal ICE CHIPS ICE CHIPS Oncology: Obj Data - Labs CBC & Chem 7: 07/13/17 04:00 07/13/17 04:00 Labs: Laboratory Results - last 24 hr 07/13/17 07/13/17 15:50 16:18 Sample Site L Radial ABG pH 7.42 ABG pCO2 44 ABG pO2 60 L ABG HCO3 28 H ABG Total CO2 30 H ABG O2 Saturation 91 L ABG Base Excess 3 O2 Delivery Device Oxy Mask Inspired O2 10.0 POC Glucose 170 H - Impressions Impressions Brain MRI 07/13/17 08:00 IMPRESSION: 1. No acute infarct, intracranial hemorrhage, significant mass effect. No evidence of abnormal contrast enhancement. 2. Mild amount of chronic small vessel ischemic white matter disease. Mild diffuse cerebral volume loss. D/ / 07/13/2017 11:25:02 Adolph Gonsalez MD / mar Interpreting Provider: Adolph Gonsalez MD Chest X-Ray 07/13/17 16:00 IMPRESSION: Diffuse pulmonary infiltrates with bilateral pleural effusions raises concern for pulmonary edema versus ARDS. This is slightly worse than on the previous exam. clinical correlation and follow-up studies recommended. D/ / Brant He MD / Brant He MD Interpreting Provider: Brant He MD Chest CTA 07/13/17 16:04 IMPRESSION: Diffuse bilateral pulmonary infiltrates have progressed compared to the previous chest CT. Although the appearance is nondiagnostic, entities such as pulmonary alveolar proteinosis should be considered. Bronchoalveolar lavage could be performed for confirmation. Other entities such as an atypical infection could have this appearance and continued radiographic follow-up is recommended. The patient has bilateral pleural effusions which have decreased in volume since the previous exam. Pleural effusions are not typical of pulmonary alveolar proteinosis but do not exclude the diagnosis. Focal consolidation in the right middle lobe as on the previous chest CT could indicate bacterial pneumonia. Follow-up chest radiographs recommended to ensure resolution. Subtle hyperdense lesions again seen in the liver on image 132 which should be watched on subsequent CT scans. D/ / Brant He MD / Brant He MD Interpreting Provider: Brant He MD - ABG Interpretation ABG results: ABG ABG pH 7.42 pH Units (7.32-7.45) 07/13/17 16:18 ABG pCO2 44 mmHg (35-45) 07/13/17 16:18 ABG pO2 60 mmHg (85-104) L 07/13/17 16:18 ABG O2 Saturation 91 % (95-98) L 07/13/17 16:18 PT/INR, D-dimer PT 12.1 Seconds (9.4-12.1) 07/11/17 15:37
[2017-07-13] MEDS ORDERED: Haloperidol Lactate 5 MG/ML VIAL IVP PRN (18:08)
[2017-07-13] MEDS ORDERED: Ipratropium/Albuterol Neb 3 ML IH PRN (18:08)
[2017-07-13] MEDS ORDERED: Ondansetron 4 MG/2 ML VIAL IVP PRN (18:08)
[2017-07-13] MEDS ORDERED: Albuterol 2.5 MG/3 ML NEBULIZER IH PRN (18:08)
[2017-07-13] MEDS ORDERED: Bisacodyl 10 MG RECTAL SUPPOSITORY RC PRN (18:08)
[2017-07-13] MEDS ORDERED: Insulin LISPRO 300 UNITS/3 ML VIAL SQ SCH ×2 (18:10)
[2017-07-13] MEDS ORDERED: Pregabalin 75 MG CAPSULE PO SCH (18:10)
[2017-07-13] MEDS ORDERED: *HR* Dextrose 50 % in Water (Syg) 50 ML SYRINGE IVP PRN (18:10)
[2017-07-13] MEDS ORDERED: traMADol 50 MG TABLET PO PRN (18:10)
[2017-07-13] MEDS ORDERED: GuaiFENesin/Codeine Oral Soln 5 ML UDC PO PRN (18:10)
[2017-07-13] MEDS ORDERED: Naloxone 0.4 MG/ML INJ IVP PRN (18:10)
[2017-07-13] MEDS ORDERED: Anastrozole 1 MG TABLET PO SCH (18:10)
[2017-07-13] MEDS ORDERED: methylPREDNISolone 125 MG/2 ML VIAL IVP SCH (18:10)
[2017-07-13] MEDS ORDERED: Dextrose Gel 15 GM/37.5 ML TUBE PO PRN ×2 (18:10)
[2017-07-13] MEDS ORDERED: BuPROPion XL (24 HR) 150 MG TABLET PO SCH (18:10)
[2017-07-13] MEDS ORDERED: D5% in Water 1,000 ML IVC PRN (18:10)
[2017-07-13] MEDS ORDERED: Ondansetron ODT 4 MG TAB.RAPDIS SL PRN (18:10)
[2017-07-13] MEDS ORDERED: Acetaminophen 325 MG TABLET PO PRN (18:10)
[2017-07-13] MEDS ORDERED: Benzonatate 100 MG CAPSULE PO PRN (18:10)
[2017-07-13] MEDS ORDERED: Budesonide/Formoterol 160/4.5 MDI IH SCH (18:10)
[2017-07-13] MEDS: *HR* LORazepam 2 MG/ML VIAL IVP PRN ×2 (18:29→22:10)
[2017-07-13] MEDS ORDERED: FentaNYL (PF) 1,000 MCG in 0.9 % Sodium Chloride 80 ML IVC SCH (18:30)
[2017-07-13 19:25] VITALS: BP 91/53
[2017-07-13] MEDS: Atropine Sulfate 1% 40 DROP/2 ML BOTTLE SL PRN (23:28)
[2017-07-14] MEDS ORDERED: Furosemide 40 MG/4 ML VIAL IVP ONE ×2 (00:43→04:18)
[2017-07-14] MEDS: Piperacillin/Tazobactam 3.375 GM in 0.9 % Sodium Chloride Mini Bag 100 ML IVPB SCH (01:52)
[2017-07-14] MEDS: Atropine Sulfate 1% 40 DROP/2 ML BOTTLE SL PRN ×2 (02:00→04:28)
[2017-07-14] MEDS: Ipratropium/Albuterol Neb 3 ML IH SCH (04:02)
[2017-07-14] MEDS ORDERED: methylPREDNISolone 125 MG/2 ML VIAL IVP ONE (04:17)
[2017-07-14] MEDS ORDERED: *HR* LORazepam 2 MG/ML VIAL IVP ONE (04:18)
[2017-07-14] MEDS: *HR* Heparin 5,000 UNIT/ML VIAL SQ SCH (06:19)
--- NOTE | 2017-07-14 07:42 | Internal Med Progress Note ---
Date of Encounter: 07/14/17 Time of Encounter: 07:36 - Assessment and plan (1) Breast cancer Current Visit: No Status: Chronic Assessment and plan: Oncology has been consulted on admission. CTA showed worsening metatstatic disease. Spoke to Dr. Lugo yesterday and he spoke to her family and code status changed to DNR-CCA. fentanyl drip/haldol/ativan ordered by Dr. Lugo. Spoke to palliative to help out. Appreciate their help. family updated and comforted. Qualifiers: Breast location: unspecified site of breast Estrogen receptor status: unspecified Patient sex: female Laterality: right Qualified Code(s): C50.911 - Malignant neoplasm of unspecified site of right female breast (2) Sepsis Current Visit: Yes Status: Acute Assessment and plan: meets criteria with leukoctosis and tachycarida. Has pneumonia suspected as a source. Treatment as below. Normal lactic acid Qualifiers: Sepsis type: sepsis due to unspecified organism Qualified Code(s): A41.9 - Sepsis, unspecified organism (3) COPD exacerbation Current Visit: Yes Status: Acute Assessment and plan: C/w IV steroids for now till seen by palliative. Family would feel more comfortable to treat as is for now till she passes. Patient has WBC count of 36.9 yesterday. No labs today. Afebrile. c/w O2 support (4) Pneumonia Current Visit: Yes Status: Acute Assessment and plan: Likely HCAP. Will keep vanco/zosyn as is for family's comfort. Awaiting palliative final recs about stopping those. c/w O2 support Qualifiers: Pneumonia type: due to unspecified organism Laterality: bilateral Lung location: unspecified part of lung Qualified Code(s): J18.9 - Pneumonia, unspecified organism (5) Pleural effusion, malignant Current Visit: No Status: Acute Assessment and plan: s/p thoracentesis this stay. This is recurrent. Has known malignant pleural effusion. (6) Hypertension Current Visit: Yes Status: Acute Assessment and plan: Blood pressure is controlled. c/w losartan. IV hydralazine to be used when necessary. Monitor blood pressure Qualifiers: Hypertension type: essential hypertension Qualified Code(s): I10 - Essential (primary) hypertension (7) Severe protein-calorie malnutrition Current Visit: Yes Status: Acute Assessment and plan: dietary following (8) DVT prophylaxis Current Visit: No Status: Acute Assessment and plan: Heparin subcutaneous - Subjective Interval history: Patient was seen and examined. Yesterday she had a sudden change in respiratory status and a CTA of the chest ruled out a PE but showed what seems like worsening of her metastatic cancer. I spoke to Dr. Lugo and transitioned the patient to comfort measures. She remains on 15 L via facemask. She is mostly unresponsive. Admitted with pleural effusion status post thoracentesis. Being treated for pneumonia and pleural effusion. metastatic breast cancer. Recently had a pleural effusion that was tapped with cytology, and back with malignant cells. - Constitutional Vitals: Temp Pulse Resp BP Pulse Ox 97.7 F 129 26 91/53 83 07/14/17 04:00 07/13/17 19:18 07/14/17 04:02 07/13/17 19:18 07/14/17 04:02 General appearance: Present: cooperative, A&O X 3, no acute distress Exam: GEN: Unresponsive.S: RRR. S1, S2, No m/r/g CVS: RRR. S1, S2, No m/r/g RESCoarse breath sounds throughout. ABD: Soft, NT, ND, +BS EXT: No edema. 2+ DP. No rashes NEURO: unresponsive. Right pupil is dilated and nonreactive. Left pupil is not as dilated but sluggishly reactive. Internal Medicine: Result - Labs CBC & Chem 7: 07/13/17 04:00 07/13/17 04:00 - ABG Interpretation ABG results: ABG ABG pH 7.42 pH Units (7.32-7.45) 07/13/17 16:18 ABG pCO2 44 mmHg (35-45) 07/13/17 16:18 ABG pO2 60 mmHg (85-104) L 07/13/17 16:18 ABG O2 Saturation 91 % (95-98) L 07/13/17 16:18 PT/INR, D-dimer PT 12.1 Seconds (9.4-12.1) 07/11/17 15:37 - Impressions Impressions Brain MRI 07/13/17 08:00 IMPRESSION: 1. No acute infarct, intracranial hemorrhage, significant mass effect. No evidence of abnormal contrast enhancement. 2. Mild amount of chronic small vessel ischemic white matter disease. Mild diffuse cerebral volume loss. D/ / 07/13/2017 11:25:02 Adolph Gonsalez MD / mar Interpreting Provider: Adolph Gonsalez MD Chest X-Ray 07/13/17 16:00 IMPRESSION: Diffuse pulmonary infiltrates with bilateral pleural effusions raises concern for pulmonary edema versus ARDS. This is slightly worse than on the previous exam. clinical correlation and follow-up studies recommended. D/ / Brant He MD / Brant He MD Interpreting Provider: Brant He MD Chest CTA 07/13/17 16:04 IMPRESSION: Diffuse bilateral pulmonary infiltrates have progressed compared to the previous chest CT. Although the appearance is nondiagnostic, entities such as pulmonary alveolar proteinosis should be considered. Bronchoalveolar lavage could be performed for confirmation. Other entities such as an atypical infection could have this appearance and continued radiographic follow-up is recommended. The patient has bilateral pleural effusions which have decreased in volume since the previous exam. Pleural effusions are not typical of pulmonary alveolar proteinosis but do not exclude the diagnosis. Focal consolidation in the right middle lobe as on the previous chest CT could indicate bacterial pneumonia. Follow-up chest radiographs recommended to ensure resolution. Subtle hyperdense lesions again seen in the liver on image 132 which should be watched on subsequent CT scans. D/ / Brant He MD / Brant He MD Interpreting Provider: Brant He MD Consult Discharge Plan - Plan [facility]errals: [facility] [Primary Care Provider] -
[2017-07-14] MEDS ORDERED: methylPREDNISolone 125 MG/2 ML VIAL IVP SCH (09:00)
[2017-07-14] MEDS ORDERED: Albuterol 2.5 MG/3 ML NEBULIZER IH PRN (09:08)
[2017-07-14] MEDS ORDERED: FentaNYL (PF) 1,000 MCG in 0.9 % Sodium Chloride 80 ML IVC SCH (09:12)
--- NOTE | 2017-07-14 09:19 | Death Note ---
Pronouncement Note - Date and Time of Date of : 07/14/17 Time of : 09:10 - Additional Data Confirmation of : no pulse, no respirations, no heart sounds Family: at bedside Additional persons at bedside: trupti Attending/PCP notified?: Yes Attending physician: Contreras England MD Was code activated?: No Autopsy requested?: No lens examiner notified?: No Organ bank notified?: Yes Advance directives: Yes
--- NOTE | 2017-07-14 09:43 | Palliative - Consult Note ---
Date of Encounter: 07/14/17 Time of Encounter: 08:45 - Assessment and Plan (1) Shortness of breath Current Visit: No Status: Acute Assessment and plan: Patient is currently last moments of life. Is actively dying is comfortable. (2) Breast cancer Current Visit: No Status: Chronic Assessment and plan: Per oncology there is no further treatment available for this patient. They recommended comfort care. The patient is currently terminal and passing. Qualifiers: Breast location: unspecified site of breast Estrogen receptor status: unspecified Patient sex: female Laterality: right Qualified Code(s): C50.911 - Malignant neoplasm of unspecified site of right female breast (3) Goals of care, counseling/discussion Current Visit: Yes Status: Acute Assessment and plan: CODE STATUS is appropriate for patient is terminal and passing. Goals of care at this point are just be kept comfortable. Patient is comfortable at this time. (4) Lung cancer Current Visit: No Status: Acute Assessment and plan: Patient does not have primary lung cancer but rather has metastatic breast cancer with metastases to the lung. This is certainly causing her respiratory problems, she may also have a pneumonitis associated with it. At this point in time the patient is terminal and passing patient would just be kept comfortable and allowed to pass quietly. Family is at bedside and is in the room. Qualifiers: Laterality: left Lung location: overlapping sites Qualified Code(s): C34.82 - Malignant neoplasm of overlapping sites of left bronchus and lung Palliative-CN HPI - Data of Consult Patient: new to practice Requesting Physician: Contreras England MD Primary Care Provider: [facility] - Consult Narrative Palliative Care/Comfort Measures: Palliative care History of present illness: Ms. Gilmore is a 61 year old female Patient diagnosed with cancer back in 2009. She completed treatment for and was in remission for several years. July of last year patient started having more difficulty shortening with shortness of breath and cough multiple bouts of pneumonia that were later discovered probably to end up being cancer. Cancer been identified as being metastatic from the breast now with metastases to the lungs static pleural effusion and metastases to the bone. She was admitted to the hospital for increasing shortness of breath and recurrent pleural effusions. She does take in a massive turn for the worse the last 48 hours. Palliative care was consulted assist with goals of care. Should had apparently done medical power of procurement inspector and will at the [place], however there were no papers available at this time. She had seen the patient yesterday and gave the opinion that this was progression of oncologic disease and was probably not infectious in nature. Commended her care only. In change CODE STATUS to DNR CCA DNI. Placed on a fentanyl drip last night and at this time does appear comfortable. While discussing with the patient's family her desires and wishes. The patient started taking very agonal respirations we finish the consultation gave the family a few minutes and the patient passed a very short time thereafter. See the note. CC: Contreras England MD Shortness of breath Past Med Surg Social Fam HX - Past Medical History Medical history: arthritis, cancer Psychiatric history: no psych history - Past Surgical History Surgical History: breast surgery, cancer surgery, cholecystectomy, other - Social History Smoking Status: Former smoker Smokeless Tobacco Status: No Alcohol use: none Drug use: none - Family History Mother Living Status: Age at : 95 Cause of : OLD AGE Hx Family Cardiac Disorders: Yes (HTN, AFIB) Father Family Member Ethnicity: Non- Living Status: Age at : 70 Cause of : LUNG CANCER Hx Family Respiratory Disorders: Yes (LUNG CANCER) Hx Family Cancer: Yes (FATHER SIDE) Hx Family Musculoskeletal Disorders: Yes (DEG. DISC IN BACK) Medications and Allergies DULoxetine [Cymbalta] 30 mg PO DAILY 06/25/17 [History] Budesonide/Formoterol 160/4.5 [Symbicort 160/4.5] 1 puff IH BID 06/26/17 [ History] Cholecalciferol (Vitamin D3) [Vitamin D3] 2,000 unit PO DAILY 06/26/17 [History] Losartan Potassium [Cozaar] 50 mg PO DAILY 06/26/17 [History] Tramadol HCl [Ultram] 50 mg PO QID PRN 06/26/17 [History] Anastrozole [Arimidex] 1 mg PO DAILY #90 tablet 07/04/17 [Rx] Benzonatate [Tessalon] 200 mg PO Q4H PRN #30 capsule 07/04/17 [Rx] Calcium Carbonate/Vitamin D3 [Calcium 500 + Vit D 200 Caplet] 1 each PO BID #60 tablet 07/04/17 [Rx] GuaiFENesin/Codeine [ROBITUSSIN w/CODEINE] 10 ml PO Q4-6H PRN 30 Days #480 liquid 07/04/17 [Rx] Oxygen [Oxygen] 2 - 3 l IN CONT 07/04/17 [History] Turmeric Root Extract [Turmeric] 500 mg PO DAILY 07/04/17 [History] Vitamin E (Dl,Tocopheryl Acet) [Vitamin E] 400 unit PO DAILY 07/04/17 [History] Albuterol Sulfate [Albuterol Inhaler] 2 puff IH Q4H PRN 07/11/17 [History] BuPROPion SR (12 HR) [Wellbutrin SR] 150 mg PO DAILY 07/11/17 [History] Ondansetron ODT [Zofran ODT] 4 mg SL Q4HR PRN 07/11/17 [History] Pregabalin [Lyrica] 300 mg PO BID 07/11/17 [History] 3 Allergy/AdvReac Type Severity Reaction Status Date / Time No Known Allergies Allergy Verified 07/11/17 15:31 ROS unobtainable: due to mental status Palliative Care-Exam - Constitutional Vitals: Temp Pulse Resp BP Pulse Ox 97.7 F 129 26 91/53 83 07/14/17 04:00 07/13/17 19:18 07/14/17 04:02 07/13/17 19:18 07/14/17 04:02 General appearance: Present: no acute distress. Absent: febrile - Head Head Exam: Present: atraumatic, normal inspection - Eye Eye exam: Present: normal appearance - Respiratory Respiratory exam: Present: decreased breath sounds (Gasping terminal respirations) - Cardiovascular Cardiovascular exam: Present: RRR - GI/Abdominal Exam GI/Abdominal exam: Present: diminished bowel sounds, soft. Absent: tenderness - Catheter Type: Urethral (John) - Neurological Exam Neurological exam: Present: altered - Psychiatric Psychiatric exam: Absent: anxious, depressed - Skin Skin exam: Present: dry. Absent: warm (Remedies are cool with some evidence of mottling) Internal Medicine - CN: Reslt - Labs CBC & Chem 7: 07/13/17 04:00 07/13/17 04:00 - ABG Interpretation ABG results: ABG ABG pH 7.42 pH Units (7.32-7.45) 07/13/17 16:18 ABG pCO2 44 mmHg (35-45) 07/13/17 16:18 ABG pO2 60 mmHg (85-104) L 07/13/17 16:18 ABG O2 Saturation 91 % (95-98) L 07/13/17 16:18 PT/INR, D-dimer PT 12.1 Seconds (9.4-12.1) 07/11/17 15:37 - Impressions Impressions Brain MRI 07/13/17 08:00 IMPRESSION: 1. No acute infarct, intracranial hemorrhage, significant mass effect. No evidence of abnormal contrast enhancement. 2. Mild amount of chronic small vessel ischemic white matter disease. Mild diffuse cerebral volume loss. D/ / 07/13/2017 11:25:02 Adolph Gonsalez MD / mar Interpreting Provider: Adolph Gonsalez MD Chest X-Ray 07/13/17 16:00 IMPRESSION: Diffuse pulmonary infiltrates with bilateral pleural effusions raises concern for pulmonary edema versus ARDS. This is slightly worse than on the previous exam. clinical correlation and follow-up studies recommended. D/ / Brant He MD / Brant He MD Interpreting Provider: Brant He MD Chest CTA 07/13/17 16:04 IMPRESSION: Diffuse bilateral pulmonary infiltrates have progressed compared to the previous chest CT. Although the appearance is nondiagnostic, entities such as pulmonary alveolar proteinosis should be considered. Bronchoalveolar lavage could be performed for confirmation. Other entities such as an atypical infection could have this appearance and continued radiographic follow-up is recommended. The patient has bilateral pleural effusions which have decreased in volume since the previous exam. Pleural effusions are not typical of pulmonary alveolar proteinosis but do not exclude the diagnosis. Focal consolidation in the right middle lobe as on the previous chest CT could indicate bacterial pneumonia. Follow-up chest radiographs recommended to ensure resolution. Subtle hyperdense lesions again seen in the liver on image 132 which should be watched on subsequent CT scans. D/ / Brant He MD / Brant He MD Interpreting Provider: Brant He MD Consult Discharge Plan - Plan [facility]errals: [facility] [Primary Care Provider] - Palliative Quality Palliative Quality: Screen for Code Status: Yes, Screen for Goals of Care: Yes, Screen for Pain: NA, If Pain Regimen Started, Initiate Bowel Regimen: NA, Screen for Nausea/Vomitting: NA Code Status: 07/11/17 20:42 Resuscitation Status: Active [RES] Routine Comment: Resuscitation Status: Full Code Resuscitation Status: Active [RES] Routine Comment: Resuscitation Status: [id number]
--- NOTE | 2017-07-14 14:50 | Death Note ---
Discharge Sum: Summary - Date and Time Date of admission: 07/11/17 18:25 Date of : 07/14/17 Time of : 09:10 - Summary Details: 61 year old female with hx of breast cancer s/p right mastectomy, chemo/rad and endocrine therapy transferred by EMS from the [facility] for shortness of breath and clinical presentation concerning for pneumonia, as well as considerations of reaccumulation of pleural effusion s/p centesis 1 week prior to presentation. The patient was admitted with pleural effusion that was recurrent. She underwent bilateral pleural effusion thoracentesis. She was being treated for healthcare associated pneumonia with antibiotics. Given her history of breast cancer with suspected metastasis oncology was consulted. A CT abdomen and pelvis was ordered as well as an MRI of the brain for cancer staging. Eventually the patient had worsening of her respiratory status and we suspected a PE, at that point CTA chest was ordered came back with findings concerning for worsening metastatic disease. Dr. Lugo from oncology was notified and talked to the family and CODE STATUS was changed to DNR CCA. The patient was put on a fentanyl drip on 07/13. She ended up passing on 07/14 with family surrounding. The patient did not seem in distress that she was passing. Family was comforted. Palliative is involved on the case as well and Dr. Lawton pronounced the patient on 07/14 at 9:10 AM. - Additional Data Attending physician: Contreras England MD Discharge Sum: Diag - PCOD Probable Cause of : Respiratory arrest Discharge Sum: Prov - Provider Primary care physician: PCP [place] Admitting clinician: Sung Sosa Consults: 07/13/17 18:08 Consult to Invasive Line Access Team [CONS] Routine Reason for Consult: Limited vascular access Line Type: EPIV Consult to Nurse Navigator [CONS] Routine Comment: Consult to Nutrition [CONS] Routine Comment: Consulting Provider: NUTRITION Reason for Dietary Consult: MST Score Consult to Oncology [CONS] Routine Consulting Provider: [facility] Reason for Consult: Lung Cancer Call Completed: No Consult to Palliative Care [CONS] Routine Comment: Consulting Provider: Palliative Care [facility]iffany Reason for Consult: metastatic breast cancer Call Completed: No Consult to Respiratory Therapy [CONS] Routine Reason for Consult: COPD Exacerbation Call Completed: No Consult to Apartment Leasing Consultant [CONS] Routine Reason for SW Consult: [facility] ([place] Team) Pronouncing clinician: Wong Lawton
== END 2017-07-14 09:10 | disposition expired | DRG 871 ==
LOC: EMEROO 15:16 → 2ANU 18:25
PROVIDERS: ADMIT Student in an Organized Health Care Education/Training Program; ATTEND Family Medicine